=== PATIENT | female | born 1995 | race Caucasian/White ===

== ENCOUNTER 2019-08-10 04:35 | Emergency (ER) | payer OTHER, MEDICAID, SELFPAY ==
[2019-08-10 04:35] VITALS: BP 127/60; PULSE 103; RESP 18; TEMP 36.3; O2SAT 98
--- NOTE | 2019-08-10 05:08 | ED.GENADULT ---
HPI - General Adult General Chief complaint: Abdominal Pain Stated complaint: throwing up History of Present Illness HPI narrative: Mariposa presented To the emergency department with lower abdominal pain, diarrhea, nausea and vomiting. She 1st started to have lower abdominal pain approximately 7 hours ago. She went to the bathroom and had bloody diarrhea. She has had multiple episodes of bloody diarrhea since as well as countless episodes of nonbilious nonbloody vomiting. She also reports subjective fevers and chills as well as fatigue. Has significant tenesmus and is frequently having to go to the bathroom in the emergency department. No travel or sick contacts. No myalgias or heat/ cold intolerance. She also took a picture of bloody mucous and blood tinged diarrhea in the toilet bowel from yesterday. Related Data Allergies Allergy/AdvReac Type Severity Reaction Status Date / Time No Known Allergies Allergy Verified 03/18/19 11:46 Review of Systems Constitutional: Constitutional: Reports chills, Reports fatigue and Reports fever(s) Eyes: Eyes: Reports no additional eye complaints ENT: Reports system reviewed and no additional complaints, except as documented Cardiovascular: Cardiovascular: Reports no additional cardiovascular complaints Respiratory: Respiratory: Reports no additional respiratory complaints Gastrointestinal: Gastrointestinal: Reports as per HPI Genitourinary: Genitourinary: Reports no additional female genitourinary complaints Musculoskeletal: Musculoskeletal: Reports no additional musculoskeletal complaints Integumentary/Breasts: Skin/Breast: Reports system reviewed and no additional complaints, except as docu Neurologic: Reports system reviewed and no additional complaints, except as documented Psychiatric: Psychiatric: Reports no additional psychiatric complaints Endocrine: Endocrine: Reports no additional endocrine complaints Hematologic/Lymphatic: Hematologic/Lymphatic: Reports no additional hematologic/lymphatic complaints Allergic/Immunologic: Allergic/Immunologic: Reports no additional allergic/immunologic complaints FOR[facility]LY [facility] Social History Social History Smoking status: Former smoker Gender identity (if verbalized by the patient): Female Exam Const: General: no acute distress and alert Orientation/consciousness: patient oriented x3 Limitations: No altered mental status Other: Mild distress. Has to frequently go to the bathroom but is unsure if she has to urinate of deficate. HENMT: Other: normocephalic, atraumatic Eyes: Conjunctivae: conjunctivae normal Pupils: Equal, round and reactive pupils present Neck: Neck: normal visual inspection Resp: Effort & Inspection: normal respiratory effort Auscultation: clear to auscultation bilaterally and no wheezes Cardio: Rate: regular rate Rhythm: regular rhythm Heart sounds: no murmurs GI: GI Palp: Yes Soft to palpation Other: Bowel sounds present throughout, tender to palpation worse in the epigastric region and suprapubic region but was slightly tender throughout. N o guarding or rebound tenderness. Small external hemorrhoid. Negative psoas and obturator signs. : Other: No CVA tenderness, did have suprapubic tenderness Skin: Other: Warm and moist to the touch, no rashes. Neuro: General: patient oriented x3, moves all extremities and no focal motor deficits Extrem: General: normal to inspection Psych: Mental Status: mental status grossly normal Course Course Emergency Course: Mariposa was seen and evaluated. Ordered labs and stool studies as well as UA. Ordered 1L of NS, 4mg of zofran and 4 mg of morphine. Vital Signs Vital signs: Vital Signs Temperature 36.3 C L 08/10/19 04:35 Pulse Rate 103 H 08/10/19 04:35 Respiratory Rate 18 08/10/19 04:35 Blood Pressure 127/60 08/10/19 04:35 Pulse Oximetry 98 08/10/19 04:35 Temperature 36.3
[2019-08-10] MEDS: MORPHINE SULFATE 2 MG/ML INJ IV PUSH (05:15)
[2019-08-10] MEDS: ONDANSETRON INJ 4 MG/2 ML VIAL IV PUSH (05:20)
[2019-08-10] MEDS: SODIUM CHLORIDE 0.9% IV 1,000 ML 999 ML IV CONT (05:20)
[2019-08-10 05:24] LABS: Basophils Absolute Auto 0.01 K/mm3 (0.00-0.10); Basophils Percent Auto 0.1 % (0.0-1.0); Hematocrit 42.7 % (35.0-49.0); Hemoglobin 14.7 g/dL (12.0-15.0); Immature Granulocyte Absolute 0.03 K/mm3 (0.00-0.00); Immature Granulocyte Percent A 0.3 % (0.0-0.0); Lymphocytes Absolute Auto 0.63 K/mm3 (1.10-4.50); Lymphocytes Percent Auto 7.3 % (18.0-42.0); Mean Corpuscular HGB Conc 34.4 g/dL (32.0-36.0); Mean Corpuscular Hemoglobin 28.8 pg (27.0-31.0); Mean Corpuscular Volume 83.7 fL (78.0-102.0); Mean Platelet Volume 9.9 fl (9.2-11.8); Monocytes Absolute Auto 0.41 K/mm3 (0.10-0.90); Monocytes Percent Auto 4.8 % (2.0-11.0); Neutrophils Absolute Auto 7.5 K/mm3 (1.7-7.2); Neutrophils Percent Auto 87.5 % (50.0-70.0); Platelet Count Result 194 K/mm3 (150-420); White Blood Count 8.6 K/mm3 (4.8-10.8)
[2019-08-10 05:36] LABS: Add Urine Microscopic? YES; Appearance Urine Clear (Clear); Bilirubin Urine 1+ (Negative); Blood Urine 1+ (Negative); Color Urine Yellow (Yellow); Glucose Urine UA Negative (Negative); Ketones Urine Negative (Negative); Leukocyte Esterase Ur Trace (Negative); Nitrate Urine Negative (Negative); Protein Urine Negative (Negative); Specific Grav Ur 1.025 (1.010-1.020)
[2019-08-10 05:40] LABS: Pregnancy On Board Control Positive; Specific Gravity Ur 1.025 (1.010-1.035); Urine Pregnancy Test Negative
[2019-08-10 05:40] LABS: Alanine Aminotransferase 15 U/L (14-59); Alkaline Phosphatase 67 U/L (46-116); Anion Gap 14.7 mmol/L (7-16); Aspartate Amino Transferase 13 U/L (15-37); Bilirubin,Total 0.5 mg/dL (0.00-1.00); Blood Urea Nitrogen 13 mg/dL (7-18); Calcium 9.1 mg/dL (8.5-10.1); Carbon Dioxide 24 mmol/L (21-32); Chloride 106 mmol/L (98-108); Estimated CRCL calculation 99 ml/min; Estimated Glomerular Filt Rate > 60; Glucose 129 mg/dL (70-99); Lipase 48 U/L (73-393); Osmolality Calculated 294 mOsm/kg (285-295); Potassium 3.7 mmol/L (3.5-5.1); Sodium 141 mmol/L (136-145); Total Protein 7.2 g/dL (6.4-8.2)
[2019-08-10 05:44] LABS: Lactic Acid 1.6 mmol/L (0.4-2.0)
[2019-08-10 05:46] LABS: RBC Urine 0-2 /hpf (0-2)
[2019-08-10 05:47] LABS: Bacteria Urine 3+ /hpf; Squamous Epithelial Cell Urine Few /hpf (Few)
[2019-08-10 05:48] LABS: Influenza Control Valid (Valid)
== END 2019-08-10 06:03 | disposition home or self-care (01) ==
PROVIDERS: Emergency Provider Family Medicine
DX: K52.9 Noninfective gastroenteritis and colitis, unspecified (principal)
CPT/HCPCS: 36415; 80053; 81001; 81025; 83605; 83690; 85025; 87804; 96361; 96374; 96375; 99283; 99284; J2270; J2405; J7030

== ENCOUNTER 2019-08-10 10:26 | Outpatient (CLI) | payer OTHER, MEDICAID, SELFPAY | END 2019-08-10 10:27 | disposition home or self-care (01) | PROVIDERS: Visit Provider Family Medicine | DX: K52.9 Noninfective gastroenteritis and colitis, unspecified (principal); Z53.9 Procedure and treatment not carried out, unspecified reason | CPT/HCPCS: 99199 ==

== ENCOUNTER → 2021-06-03 15:57 | Outpatient (CLI) | payer OTHER, MEDICAID, SELFPAY ==
--- NOTE | ~2021-06-03 | XR_ITS ---
EXAMINATION: XR chest 2V DATE: 06/03/2021 16:25 INDICATION: Dyspnea, unspecified. TECHNIQUE: Frontal and lateral views of the chest were obtained. COMPARISON: Chest single view 10/08/2018 FINDINGS: The chest demonstrates clear lungs without pneumonia, pleural effusion, or pneumothorax. Th e heart size is normal. IMPRESSION: 1. No acute cardiopulmonary disease. Reviewed, dictated and finalized at location [employer]
== END ==
PROVIDERS: PCP Nurse Practitioner Family; Referring Provider Nurse Practitioner Family; Visit Provider Nurse Practitioner Family
DX: R06.00 Dyspnea, unspecified (principal)
CPT/HCPCS: 71046

== ENCOUNTER 2022-04-25 08:19 | Emergency (ER) | payer OTHER, MEDICAID, SELFPAY ==
[2022-04-25 08:29] VITALS: BP 115/61; PULSE 107; RESP 18; TEMP 37.1; O2SAT 100
--- NOTE | 2022-04-25 08:47 | ED.GENADULT ---
HPI - General Adult General Chief complaint: Upper Respiratory Infection Stated complaint: cold flu Source: patient Mode of arrival: ambulatory Limitations: no limitations History of Present Illness HPI narrative: Patient presents for evaluation of sore throat since yesterday. She has associated fevers and chills. She states that she, her boyfriend, and son had flu two weeks ago. She had a follow-up appointment with her primary provider 2 days ago was doing well at that time. She states her posterior pharynx is erythematous in appearance. She took 400 mg of ibuprofen this morning. She had some nausea which she attributes to the severity of her pain. She denies any vomiting, diarrhea, cough, shortness of breath. No additional complaints or concerns. Related Data Allergies Allergy/AdvReac Type Severity Reaction Status Date / Time No Known Allergies Allergy Verified 04/25/22 08:31 Review of Systems Review of Systems: CONSTITUTIONAL: Reports fever and chills. EYES: Denies visual changes, redness, or discharge. ENT: Reports sore throat. Denies rhinorrhea, congestion, or otalgia. CARDIOVASCULAR: Denies chest pain, palpitations, or edema. RESPIRATORY: Denies cough or dyspnea. GASTROINTESTINAL: Denies abdominal pain, nausea, vomiting, or diarrhea. GENITOURINARY: Denies dysuria or hematuria. SKIN: Denies rash or itching. MUSCULOSKELETAL: Denies back pain, joint pain, or myalgia. NEUROLOGIC: Denies headache, numbness, dizziness, or weakness. PSYCHIATRIC: Denies anxiety or depression. PMFSH Past Medical History Medical History No pertinent past medical history Surgical History Surgical History No pertinent past surgical history Family History Family History (Updated 04/25/22 @ 08:52 by MARGIE Smith, ) Mother Family history non-contributory Social History Social History Smoking status: Former smoker Gender identity (if verbalized by the patient): Female Exam Narrative: GENERAL: Well-appearing, well-nourished, and in no acute distress. HEAD: Normocephalic, atraumatic. EYES: PERRLA and EOMI. ENT: Nares clear, no rhinorrhea or epistaxis. Mucous membranes moist. Bilateral tonsillar enlargement and erythema without exudate. Uvula is midline. Bilateral TMs pearly qureshi nonbulging NECK: Supple. No adenopathy or masses. No carotid bruits or JVD CHEST: Clear to auscultation. No respiratory distress. No wheezes rales or rhonchi HEART: Regular rate and rhythm. No murmur heard. Normal peripheral pulses. ABDOMEN: Soft, nontender, nondistended, normal active bowel sounds. EXTREMITIES: Normal range of motion. No edema. SKIN: Warm, dry, no rash. NEURO: No focal deficits. Alert and oriented x3. PSYCH: Normal mood and affect. Course Course Emergency Course: This is a 26-year-old female who presented for evaluation of sore throat, fever and chills. Unfortunately we do not have rapid strep tests available. Will send throat culture. Start amoxicillin. Increase hydration. Okay to increase ibuprofen to 800mg po TID with food. Follow up with primary. Go to the ER for difficulty breathing or swelling. Patient in agreement with plan of care. Level of Care: Express Care Visit Vital Signs Vital signs: Vital Signs Temperature 37.1 C 04/25/22 08:29 Pulse Rate 107 H 04/25/22 08:29 Respiratory Rate 18 04/25/22 08:29 Blood Pressure 115/61 04/25/22 08:29 Pulse Oximetry 100 04/25/22 08:29 Oxygen Delivery Room Air 04/25/22 08:29 Temperature 37.1 C 04/25/22 08:29 Pulse Rate 107 H 04/25/22 08:29 Respiratory Rate 18 04/25/22 08:29 Blood Pressure 115/61 04/25/22 08:29 Pulse Oximetry 100 04/25/22 08:29 Oxygen Delivery Room Air 04/25/22 08:29 Medical Decision Making Vital Signs Vital Signs:
== END 2022-04-25 08:55 | disposition home or self-care (01) ==
PROVIDERS: Emergency Provider Nurse Practitioner; PCP Nurse Practitioner Family
DX: J02.9 Acute pharyngitis, unspecified (principal); Z87.891 Personal history of nicotine dependence
CPT/HCPCS: 87081; 87147; 99213; G0463

== ENCOUNTER 2022-07-05 10:27 | Emergency (ER) | payer OTHER, MEDICAID, SELFPAY ==
[2022-07-05 10:54] VITALS: BP 114/73; PULSE 86; RESP 14; TEMP 36.9; O2SAT 100
--- NOTE | 2022-07-05 11:32 | ED.EAR ---
HPI - Ear Problem General Chief complaint: Ear Stated complaint: rt ear throbbing,cough,runny nose Source: patient Mode of arrival: ambulatory Limitations: no limitations History of Present Illness HPI Narrative: Patient presents for evaluation of right-sided ear pain. Symptom onset this morning upon waking today. She has some muffled hearing on the right side. No drainage or tinnitus. Over the last 5 days she has experienced sinus congestion and cough. No fever, chills, nausea, vomiting, diarrhea. She indicates her cough and sinus symptoms are improving. She does not smoke. No underlying medical problems. Related Data Allergies Allergy/AdvReac Type Severity Reaction Status Date / Time No Known Allergies Allergy Verified 07/05/22 11:00 Review of Systems Review of Systems: CONSTITUTIONAL: Denies fever, chills, or sweats. EYES: Denies visual changes, redness, or discharge. ENT: Reports right-sided otalgia and muffled hearing.. Denies denies rhinorrhea, congestion, sore throat, tinnitus. CARDIOVASCULAR: Denies chest pain, palpitations, or edema. RESPIRATORY: Denies cough or dyspnea. GASTROINTESTINAL: Denies abdominal pain, nausea, vomiting, or diarrhea. GENITOURINARY: Denies dysuria or hematuria. SKIN: Denies rash or itching. MUSCULOSKELETAL: Denies back pain, joint pain, or myalgia. NEUROLOGIC: Denies headache, numbness, dizziness, or weakness. PSYCHIATRIC: Denies anxiety or depression. PMFSH Past Medical History Medical History No pertinent past medical history Surgical History Surgical History No pertinent past surgical history Family History Family History Mother Family history non-contributory Social History Social History Smoking status: Former smoker Substance use: never Gender identity (if verbalized by the patient): Female Spiritual care concerns: No Exam Narrative: GENERAL: Well-appearing, well-nourished, and in no acute distress. HEAD: Normocephalic, atraumatic. EYES: PERRLA and EOMI. ENT: Nares clear, no rhinorrhea or epistaxis. Mucous membranes moist. Oropharynx without tonsillar hypertrophy exudate or other lesions. Right tympanic membrane erythema and bulging NECK: Supple. No adenopathy or masses. No carotid bruits or JVD CHEST: Clear to auscultation. No respiratory distress. No wheezes rales or rhonchi HEART: Regular rate and rhythm. No murmur heard. Normal peripheral pulses. ABDOMEN: Soft, nontender, nondistended, normal active bowel sounds. EXTREMITIES: Normal range of motion. No edema. SKIN: Warm, dry, no rash. NEURO: No focal deficits. Alert and oriented x3. PSYCH: Normal mood and affect. Course Course Emergency Course: This is a 27-year-old female who presented for evaluation of right-sided ear pain. She has evidence of otitis media on exam. Will treat with Augmentin. Increase hydration. [id number] agents for symptom management. Follow up with primary provider. Go to the ER for worsening symptoms. Patient in agreement with plan of care. Level of Care: Express Care Visit Vital Signs Vital signs: Vital Signs Temperature 36.9 C 07/05/22 10:54 Pulse Rate 86 07/05/22 10:54 Respiratory Rate 14 07/05/22 10:54 Blood Pressure 114/73 07/05/22 10:54 Pulse Oximetry 100 07/05/22 10:54 Oxygen Delivery Room Air 07/05/22 10:54 Temperature 36.9 C 07/05/22 10:54 Pulse Rate 86 07/05/22 10:54 Respiratory Rate 14 07/05/22 10:54 Blood Pressure 114/73 07/05/22 10:54 Pulse Oximetry 100 07/05/22 10:54 Oxygen Delivery Room Air 07/05/22 10:54 Medical Decision Making Vital Signs Vital Signs: Vital Signs Temperature 36.9 C 07/05/22 10:54 Pulse Rate 86 07/05/22 10:54 Respiratory Ra
== END 2022-07-05 11:34 | disposition home or self-care (01) ==
PROVIDERS: Emergency Provider Nurse Practitioner; PCP Nurse Practitioner Family
DX: H66.91 Otitis media, unspecified, right ear (principal); Z87.891 Personal history of nicotine dependence
CPT/HCPCS: 99213; G0463

== ENCOUNTER 2023-02-24 08:56 | Emergency (ER) | payer OTHER, MEDICAID, SELFPAY ==
[2023-02-24 09:05] VITALS: BP 146/78; PULSE 107; RESP 16; TEMP 36.7; O2SAT 99
--- NOTE | 2023-02-24 09:34 | ED.GENADULT ---
HPI - General Adult General Chief complaint: Upper Respiratory Infection Stated complaint: Sore Throat Source: patient, family and RN notes reviewed History of Present Illness HPI narrative: 27 yo F presents to urgent care with complaints of a sore throat x 2 days. Denies any known fevers, chest pain, SOB, N/V/D. Related Data Home Medications Medication Instructions Recorded Confirmed No Home Medications 02/24/23 02/24/23 Allergies Allergy/AdvReac Type Severity Reaction Status Date / Time No Known Allergies Allergy Verified 02/24/23 09:27 Review of Systems Review of Systems: CONSTITUTIONAL: Denies fever, chills, or sweats. EYES: Denies visual changes, redness, or discharge. ENT: Left ear pain and sore throat CARDIOVASCULAR: Denies chest pain, palpitations, or edema. RESPIRATORY: Denies cough or dyspnea. GASTROINTESTINAL: Denies abdominal pain, nausea, vomiting, or diarrhea. GENITOURINARY: Denies dysuria or hematuria. SKIN: Denies rash or itching. MUSCULOSKELETAL: Denies back pain, joint pain, or myalgia. NEUROLOGIC: Denies headache, numbness, or weakness. Pertinent positives per HPI. PMFSH Past Medical History Medical History No pertinent past medical history Surgical History Surgical History No pertinent past surgical history Family History Family History Mother Family history non-contributory Social History Social History Smoking status: Former smoker Substance use: never Gender identity (if verbalized by the patient): Female Spiritual care concerns: No Comments At the time of my signature, I reviewed and agree with the nursing past medical, surgical, social, and family history. There is no relevant family history pertinent to the patient complaint. Exam Narrative: GENERAL: This is a well-nourished, well-developed patient, in no apparent distress. HEAD: normocephalic, atraumatic. EYES: Sclera clear/white. Vision is grossly intact. EARS: External ears normal, auditory canals clear and without drainage, TMs normal without perforation. Hearing grossly intact. NOSE: External nose normal with no obvious nasal discharge, nares without redness, no rhinorrhea. THROAT: Mucous membranes moist, posterior pharynx clear. NECK: Neck supple, non-tender without lymphadenopathy, masses or thyromegaly. CARDIOVASCULAR: Regular rate and rhythm without murmurs, gallops, or rubs. RESPIRATORY: Clear to auscultation. Breath sounds equal bilaterally. No wheezes, rales, or rhonchi. GASTROINTESTINAL: Abdomen soft, non-tender, nondistended. Bowel sounds are active. No hepato-splenomegaly, or palpable masses. No guarding. SKIN: warm, intact with no suspicious lesions or rash, good texture and turgor. NEURO: awake, alert, and oriented to person, place and time. There were no obvious focal neurologic abnormalities. EXTREMITIES: No clubbing, cyanosis, or edema. No joint tenderness, effusion, or edema noted. BACK: Nontender without deformity or crepitus. No flank tenderness. Course Course Level of Care: Express Care Visit Vital Signs Vital signs: Vital Signs Temperature 98.1 F 02/24/23 09:05 Pulse Rate 107 H 02/24/23 09:05 Respiratory Rate 16 02/24/23 09:05 Blood Pressure 146/78 H 02/24/23 09:05 Pulse Oximetry 99 02/24/23 09:05 Oxygen Delivery Room Air 02/24/23 09:05 Temperature 98.1 F 02/24/23 09:05 Pulse Rate 107 H 02/24/23 09:05 Respiratory Rate 16 02/24/23 09:05 Blood Pressure 146/78 H 02/24/23 09:05 Pulse Oximetry 99 02/24/23 09:05 Oxygen Delivery Room Air 02/24/23 09:05 Reviewed Medical Decision Making MDM Narrative Medical decision making narrative: Rapid strep is negative in the office; however we will se
== END 2023-02-24 09:43 | disposition home or self-care (01) ==
PROVIDERS: Emergency Provider Nurse Practitioner Family; PCP Nurse Practitioner Family
DX: J02.9 Acute pharyngitis, unspecified (principal); Z87.891 Personal history of nicotine dependence
CPT/HCPCS: 87081; 87880; 99213; G0463

== ENCOUNTER 2023-02-28 10:11 | Emergency (ER) | payer OTHER, MEDICAID, SELFPAY ==
[2023-02-28 10:23] VITALS: BP 127/88; PULSE 103; RESP 16; TEMP 36.5; O2SAT 97
--- NOTE | 2023-02-28 11:19 | ED.URI ---
HPI - URI/Sore Throat General Chief Complaint: Upper Respiratory Infection Stated Complaint: cough/lower back pain Time Seen by Provider: 02/28/23 11:19 Source: patient, RN notes reviewed and old records reviewed Mode of arrival: ambulatory Limitations: no limitations History of Present Illness HPI Narrative: 27 year old female who presents to [facility] care with complaints of cough which is productive at this time which started on Wednesday. Patient was seen on Wednesday for sore throat which was negative. Patient reports that she does have some nasal drainage and her voice is hoarse today, pain in mid right back with her cough. Patient denies any fever has been taking DayQuil, Vitamin C and also Ibuprofen. MD elicited complaint: cough and sore throat Onset (ago): day(s) (5-6 days) Pain scale (0-10): 4 Able to tolerate fluids by mouth: Yes Exacerbating factors: other (cough increaes back discomfort) Treatments prior to arrival: ibuprofen and other (DayQuil) Related Data Allergies Allergy/AdvReac Type Severity Reaction Status Date / Time No Known Allergies Allergy Verified 02/24/23 09:27 Review of Systems Review of Systems: CONSTITUTIONAL: Denies malaise, chills, sweats, or fever. EYES: Denies visual changes, redness, or discharge. ENT: Reports rhinorrhea, congestion, sinus pain,no otalgia and sore throat. CARDIOVASCULAR: Denies chest pain, palpitations, or edema. RESPIRATORY: Reports cough.? Denies dyspnea.reports pain to mid back with cough GASTROINTESTINAL: Denies abdominal pain, nausea, vomiting, diarrhea SKIN: Denies rash or itching. MUSCULOSKELETAL: Denies myalgia. NEUROLOGIC: Denies headache. All systems reviewed & are unremarkable except as noted in HPI and below PMFSH Past Medical History Medical History No pertinent past medical history Surgical History Surgical History No pertinent past surgical history Family History Family History Mother Family history non-contributory Social History Social History Smoking status: Former smoker Substance use: never Gender identity (if verbalized by the patient): Female Spiritual care concerns: No Comments At time of signature, agree with nursing past medical, surgical, social and family history. There is no relevant family history pertinent to the presenting complaint Exam Narrative: GENERAL: Well-appearing, well-nourished, and in no acute distress. HEAD: Normocephalic EYES: PERRLA, conjunctivae clear ENT: Nares clear, turbinates edematous and erythematous, clear discharge. Mucous membranes moist. TM pearly qureshi with dull light reflex bilaterally; no tragal tenderness. Oropharynx erythematous without lesions. Tonsils not enlarged and without exudate, no drooling, hoarseness, no trismus, uvula midline.post nasal drainage NECK: Supple. No lymphadenopathy CHEST: Clear to auscultation, breath sounds equal. No wheezing, rhonchi, rales, or stridor. No respiratory distress, speaks in full sentences.productive cough, SAO2 97% on room air, pain to mid back with cough HEART: Regular rate and rhythm. No murmur heard. SKIN: Warm, dry, no rash. NEURO: Alert and oriented x3. PSYCH: Normal mood and affect Course Course Emergency Course: Patient is aware of diagnosis, understands and agrees to treatment plan.? Anticipatory guidance given.? Patient agrees to follow-up as directed and is aware of reasons to seek care at the emergency department. Portions of this record may have been created with voice recognition software Level of Care: Express Care Visit Vital Signs Vital signs: Vital Signs Temperature 36.5 C 02/28/23 10:23 Pulse Rate 103 H 02/28/23 10:23 Respiratory Rate 16 02/28/23 10:23 Blood Pres
== END 2023-02-28 11:43 | disposition home or self-care (01) ==
PROVIDERS: Emergency Provider Registered Nurse; PCP Nurse Practitioner Family
DX: J06.9 Acute upper respiratory infection, unspecified (principal); Z87.891 Personal history of nicotine dependence
CPT/HCPCS: 99213; G0463

== ENCOUNTER 2023-10-27 15:20 | Emergency (ER) | payer OTHER, SELFPAY ==
[2023-10-27 15:32] VITALS: BP 119/76; PULSE 81; RESP 16; TEMP 36.6; O2SAT 100
--- NOTE | 2023-10-27 15:34 | ED.EAR ---
HPI - Ear Problem General Chief complaint: Ear Stated complaint: Sore Throat/Right Ear Pain Time Seen by Provider: 10/27/23 15:40 Source: patient and RN notes reviewed Mode of arrival: ambulatory Limitations: no limitations History of Present Illness HPI Narrative: 28-year-old female presents concern for right ear pain for 2-3 days. Reports she has mild right sore throat, ear hurts when she swallows. She reports she has had recent cold symptoms no doctor was treating her for a sinus infection. She reports she also was recently treated for pinkeye successfully. MD Complaint: ear pain Related Data Allergies Allergy/AdvReac Type Severity Reaction Status Date / Time No Known Allergies Allergy Verified 02/24/23 09:27 Review of Systems Review of Systems: CONSTITUTIONAL: Denies malaise, chills, sweats, or fever. EYES: Denies visual changes, redness, or discharge. ENT: Denies rhinorrhea, congestion, sinus pain, and sore throat. Reports right ear pain CARDIOVASCULAR: Denies chest pain, palpitations, or edema. RESPIRATORY: Denies cough. Denies dyspnea. GASTROINTESTINAL: Denies abdominal pain, nausea, vomiting, diarrhea SKIN: Denies rash or itching. MUSCULOSKELETAL: Denies myalgia. NEUROLOGIC: Denies headache. All systems reviewed & are unremarkable except as noted in HPI and below PMFSH Past Medical History Medical History No pertinent past medical history Surgical History Surgical History No pertinent past surgical history Family History Family History Mother Family history non-contributory Social History Social History Smoking status: Former smoker Substance use: never Gender identity (if verbalized by the patient): Female Spiritual care concerns: No Comments At time of signature, agree with nursing past medical, surgical, social and family history. There is no relevant family history pertinent to the presenting complaint Exam Narrative: GENERAL: Well-appearing, well-nourished, and in no acute distress. HEAD: Normocephalic EYES: PERRLA, conjunctivae clear ENT: Nares clear. Mucous membranes moist. TM pearly qureshi with sharp light reflex bilaterally; no tragal tenderness. Oropharynx not erythematous without lesions. Tonsils not enlarged and without exudate, no drooling, no hoarseness, no trismus, uvula midline. NECK: Supple. No lymphadenopathy CHEST: Clear to auscultation, breath sounds equal. No wheezing, rhonchi, rales, or stridor. No respiratory distress, speaks in full sentences. HEART: Regular rate and rhythm. No murmur heard. SKIN: Warm, dry, no rash. NEURO: Alert and oriented x3. PSYCH: Normal mood and affect Course Course Emergency Course: Patient is aware of diagnosis, understands and agrees to treatment plan. Anticipatory guidance given. Patient agrees to follow-up as directed and is aware of reasons to seek care at the emergency department. Portions of this record may have been created with voice recognition software Level of Care: [facility] Visit Vital Signs Vital signs: Vital Signs Temperature 98 F 10/27/23 15:32 Pulse Rate 81 10/27/23 15:32 Respiratory Rate 16 10/27/23 15:32 Blood Pressure 119/76 10/27/23 15:32 Pulse Oximetry 100 10/27/23 15:32 Oxygen Delivery Room Air 10/27/23 15:32 Temperature 98 F 10/27/23 15:32 Pulse Rate 81 10/27/23 15:32 Respiratory Rate 16 10/27/23 15:32 Blood Pressure 119/76 10/27/23 15:32 Pulse Oximetry 100 10/27/23 15:32 Oxygen Delivery Room Air 10/27/23 15:32 Reviewed. Medical Decision Making MDM Narrative Medical decision making narrative: I evaluated this in the [facility]. History is obtained from patient who is an independent historian and physical exam was performed.
== END 2023-10-27 15:51 | disposition home or self-care (01) ==
PROVIDERS: Emergency Provider Nurse Practitioner; PCP Nurse Practitioner Family
DX: H92.01 Otalgia, right ear (principal); Z87.891 Personal history of nicotine dependence
CPT/HCPCS: 99211; G0463

== ENCOUNTER 2024-01-23 11:20 | Emergency (ER) | payer OTHER, SELFPAY ==
[2024-01-23 11:31] VITALS: BP 120/71; PULSE 84; RESP 16; TEMP 36.8; O2SAT 99
[2024-01-23 11:47] VITALS: BP 120/71; PULSE 84; RESP 16; TEMP 36.8; O2SAT 99
--- NOTE | 2024-01-23 11:58 | ED.URI ---
HPI - URI/Sore Throat General Chief Complaint: Upper Respiratory Infection Stated Complaint: sinus ruth,rt ear clogged,migraine History of Present Illness HPI Narrative: Patient presents with nasal drainage cough congestion body aches and fevers for the last 3 days. No shortness of breath no chest pain. Patient is not taking [id number] for her symptoms. Related Data Allergies Allergy/AdvReac Type Severity Reaction Status Date / Time No Known Allergies Allergy Verified 01/23/24 11:29 Review of Systems Review of Systems: CONSTITUTIONAL: Denies chills, or sweats. Reports fever and generalized body aches EYES: Denies visual changes, redness, or discharge. ENT: Denies otalgia. Reports nasal congestion runny nose and sore throat CARDIOVASCULAR: Denies chest pain, palpitations, or edema. RESPIRATORY: Denies dyspnea. Reports occasional cough GASTROINTESTINAL: Denies abdominal pain, nausea, vomiting, or diarrhea. GENITOURINARY: Denies dysuria or hematuria. SKIN: Denies rash or itching. MUSCULOSKELETAL: Denies back pain, joint pain, or myalgia. Reports generalized body aches NEUROLOGIC: Denies headache, numbness, or weakness. PSYCHIATRIC: Denies anxiety or depression. [facility] Past Medical History Medical History No pertinent past medical history Surgical History Surgical History No pertinent past surgical history Family History Family History Mother Family history non-contributory Social History Social History Smoking status: Former smoker Substance use: never Gender identity (if verbalized by the patient): Female Spiritual care concerns: No Comments At time of signature, agree with nursing past medical, surgical, social and family history. There is no relevant family history pertinent to the presenting complaint Exam Narrative: The patient is a well-developed, well-nourished in no acute distress. SKIN: Skin is warm and dry without erythema, swelling or exudate. There is good turgor. No tenting. HEAD: Atraumatic. Normocephalic. No temporal or scalp tenderness. EYES: Moist and bright. Sclera and conjunctivae normal. No discharge. PERRLA. Extraocular motions intact. Gross visual acuity intact. EARS: Pinna is normal shape and contour. Clear external auditory canals. TM pearly layne with good cone of light, no erythema or suppuration. Bilateral cerumen noted no gross hearing deficit. NOSE: pink, moist mucosa with good air movement. Clear rhinorrhea without nasal flaring. Septum midline. Mouth: moist mucous membranes. THROAT; mild erythema noted to posterior oropharynx with moderate postnasal drainage. Without exudate or ulceration.. Uvula midline. Normal movement of soft palate. NECK: Supple and nontender with full range of motion without discomfort. No meningeal signs. LUNGS: Equal and bilateral breath sounds without wheezes, rales or rhonchi. CHEST: The chest wall is without retractions or use of accessory muscles. HEART: Has a regular rate and rhythm without murmur, gallops, click or rub. ABDOMEN: Soft, nontender with positive active bowel sounds. No rebound tenderness. EXTREMITIES: Without cyanosis, clubbing or edema. Equal 2+ distal pulses and 2 second capillary refill noted. NEUROLOGIC: alert, active, . The patient moves all extremities with normal muscle strength. Normal muscle tone is noted. Normal coordination is noted. NO focal neurological findings noted. Course Course Level of Care: Express Care Visit Vital Signs Vital signs: Vital Signs Temperature 36.8 C 01/23/24 11:31 Pulse Rate 84 01/23/24 11:31 Respiratory Rate 16 01/23/24 11:31 Blood Pressure 120/71 01/23/24 11:31 Pulse Oximetry 99 01/23/24 11:31 Oxygen Delivery Room Air 01/23/24 11:31
[2024-01-23 12:00] LABS: EDCOVIDSCREEN Negative (Negative); EDINFLUASCREEN Negative (Negative); EDINFLUBSCREEN Negative (Negative)
== END 2024-01-23 12:06 | disposition home or self-care (01) ==
PROVIDERS: Emergency Provider Nurse Practitioner Family; PCP Nurse Practitioner Family
DX: J06.9 Acute upper respiratory infection, unspecified (principal); Z20.822 Contact with and (suspected) exposure to COVID-19; Z87.891 Personal history of nicotine dependence
CPT/HCPCS: 87635; 87804; 99213; G0463

== ENCOUNTER 2024-07-28 11:14 | Emergency (ER) | payer SELFPAY ==
[2024-07-28 11:23] VITALS: BP 104/75; PULSE 99; RESP 16; TEMP 36.6; O2SAT 100
--- NOTE | 2024-07-28 11:28 | ED.URI ---
HPI - URI/Sore Throat General Chief Complaint: Nausea/Vomiting/Diarrhea Stated Complaint: flu symptoms Time Seen by Provider: 07/28/24 11:28 Source: patient Mode of arrival: ambulatory Limitations: no limitations History of Present Illness HPI Narrative: 29 yo F presents with c/o N/V, ABD cramping since yesterday evening. Afebrile. Family members have been sick with similar symptoms. Vomited once today. All systems reviewed and negative except as noted above. Related Data Allergies Allergy/AdvReac Type Severity Reaction Status Date / Time No Known Allergies Allergy Verified 01/23/24 11:29 Review of Systems Review of Systems: CONSTITUTIONAL: Denies fever, chills, or sweats. reports fatigue. EYES: Denies visual changes, redness, or discharge. ENT: Denies rhinorrhea, congestion, sore throat, or otalgia. CARDIOVASCULAR: Denies chest pain, palpitations, or edema. RESPIRATORY: Denies cough or dyspnea. GASTROINTESTINAL: Reports abdominal cramping, nausea, vomiting. Denies diarrhea. GENITOURINARY: Denies dysuria or hematuria. SKIN: Denies rash or itching. MUSCULOSKELETAL: Denies back pain, joint pain, or myalgia. NEUROLOGIC: Denies headache, numbness, or weakness. PSYCHIATRIC: Denies anxiety or depression. All other systems reviewed are negative, except as documented in HPI. PMFSH Past Medical History Medical History No pertinent past medical history Surgical History Surgical History No pertinent past surgical history Family History Family History Mother Family history non-contributory Social History Social History Smoking status: Former smoker Substance use: never Gender identity (if verbalized by the patient): Female Spiritual care concerns: No Comments At time of signature, agree with nursing past medical, surgical, social and family history. There is no relevant family history pertinent to the presenting complaint. Exam Narrative: GENERAL: This is a well-nourished, well-developed patient, in no apparent distress. HEAD: normocephalic, atraumatic. EYES: PERRL. Sclera clear/white. Vision is grossly intact. EARS: External ears normal NOSE: External nose normal NECK: Neck supple, non-tender without lymphadenopathy, masses or thyromegaly. CARDIOVASCULAR: Regular rate and rhythm without murmurs, gallops, or rubs. RESPIRATORY: Clear to auscultation. Breath sounds equal bilaterally. No wheezes, rales, or rhonchi. GASTROINTESTINAL: Abdomen soft, non-tender, nondistended. Bowel sounds are active. No hepato-splenomegaly, or palpable masses. No guarding. SKIN: warm, Dry, intact with no suspicious lesions or rash, good texture and turgor. NEURO: awake, alert, and oriented to person, place and time. There were no obvious focal neurologic abnormalities. EXTREMITIES: No joint tenderness, effusion, or edema noted. Course Course Level of Care: Express Care Visit Vital Signs Vital signs: Vital Signs Temperature 36.6 C 07/28/24 11:23 Pulse Rate 99 07/28/24 11:23 Respiratory Rate 16 07/28/24 11:23 Blood Pressure 104/75 07/28/24 11:23 Pulse Oximetry 100 07/28/24 11:23 Oxygen Delivery Room Air 07/28/24 11:23 Temperature 36.6 C 07/28/24 11:23 Pulse Rate 99 07/28/24 11:23 Respiratory Rate 16 07/28/24 11:23 Blood Pressure 104/75 07/28/24 11:23 Pulse Oximetry 100 07/28/24 11:23 Oxygen Delivery Room Air 07/28/24 11:23 Reviewed MDM - URI/Sore Throat MDM Narrative Medical decision making narrative: patient is well-appearing. No vomiting while at Express [facility]. Will discharge with dicyclomine and Zofran. No abdominal tenderness on exam. Patient is alert, nontoxic. Please be advised this is a medical document. It is intended for [id number] communication. It is written in medical language and may contain unfamiliar abbreviations or verbiage. Medical documents are intended to carry relevant information, facts as evident, and the clinical opinion of the practitioner at the time of the encounter. This report may have been done utilizing a voice recognition system. Attempts have been made to correct errors. However, there may be uncorrected grammatical, spelling, and recognition errors present. The file time of this note does not necessarily represent the time of service. Discharge Plan Discharge Clinical Impression: Viral gastroenteritis Patient Disposition: Home, Self-Care Condition: Stable Instructions: Gastroenteritis (ED) Additional Instructions: your symptoms are viral and may last 7-10 days. Take medications as prescribed. Take Tylenol or ibuprofen every 6-8 hours as needed for pain and fever. Drink plenty of water to prevent dehydration. See your primary care physician if symptoms are not improving. If you have severe abdominal pain go to the ER. Patient Language: Z[place]ian Prescriptions: New dicyclomine 20 mg tablet 20 mg PO Q6-8H PRN (Reason: abdominal cramping) Qty: 20 0RF ondansetron 4 mg tablet,disintegrating 4 mg PO Q8H PRN (Reason: nausea and vomiting) Qty: 12 0RF Follow-up/Referrals: Scott,Taty Perales APN [Primary Care Provider] - Stand Alone Forms: Work/School Release IP Time of Disposition: 11:34
--- OUTSIDE RECORDS SUMMARY | 2024-07-28 12:28 | XMS_ITS | Clinical Summary ---
Author Organization [facility] Address [address] [place] [address] Phone Care Team Providers Care Ironer Or Presser Name Role Phone Taty Scott APRN, CNP Primary Care Provider [phone] Taty Scott APRN, CNP Unavailable Allergies No known active allergies Medications albuterol 108 (90 Base) MCG/ACT Aerosol Solution take 2 Puffs by inhalation every 6 hours as needed for Cough. 6.7 g 2 Active albuterol 108 (90 Base) MCG/ACT Aerosol Solution take 2 Puffs by inhalation every 4 hours as needed. Active ondansetron (ZOFRAN) 4 MG Tablet Take 1 Tablet by mouth every 8 hours as needed for Nausea - 1st line. 10 Tablet 4 Active Social History Tobacco Use Types Packs/Day Years Used Date Smoking Tobacco: Former Smokeless Tobacco: Never Alcohol Use Standard Drinks/Week Comments Not Currently 0 (1 standard drink = 0.6 oz pur e alcohol) rare Comments No Sex and Gender Information Value Date Recorded Sex Assigned at Female 09/21/2023 10:15 AM CDT Legal Sex Female 7:52 PM CDT Gender Identity Female 09/21/2023 10:15 AM CDT Sexual Orientation Straight 09/21/2023 10 :15 AM CDT Last Filed Vital Signs Vital Sign Reading Time Taken Comments Blood Pressure 97/57 09/21/2023 2:15 PM CDT Pulse 100 09/21/2023 2:15 PM CDT Temperature 36.8 C (98.3 F) 09/21/2023 8:38 AM CDT Respiratory Rate 18 09/21/2023 2:15 PM CDT Oxygen Saturation 97% 09/21/2023 2:15 PM CDT Inhaled Oxygen Concentration - - Weight 77.1 kg (170 lb) 09/21/2023 8:38 AM CDT Height 170.2 cm (5' 7 ) 09/21/2023 8:38 AM CDT Body Mass Index 26.63 09/21/2023 8:38 AM CDT Plan of Treatment Health Maintenance Due Date Last Done Comments Hepatitis C Virus (HCV) Screening 1997 Hepatitis B Immunization (3 of 3 - 3-dose series) 01/02/1998 1997, 1997 Pap Smear 2018 Influenza Immunization (#1) 01/09/202403/10, 02/14/2013, 01/29/2012, Additional history exists SARS-COV-2 Immunization ( season) 2024 Respiratory Syncytial Virus (RSV) Immunization (Adult) (1 - 1-dose 75+ series) 2072 Human Papillomavirus (HPV) Immunization Discontinued 05/01/2008, 12/13/2007, 10/12/2007 Meningococcal Immunization (ACWY) Completed 09/11/2013 TdaP Immunization Completed 11/04/2017, 10/12/2007 Pneumococcal Immunization Combined Aged Out No longer eligible based on patient's age to complete this topic Rotavirus Immunization Aged Out No lo nger eligible based on patient's age to complete this topic Insurance MEDICAID [facility] MEDICAID [place] Care Teams Ironer Or Presser Relationship Specialty Start Date End Date Taty Scott APRN, [address] [place] [address] PCP - General Family Medicine 10/16/21 Taty Scott APRN, [address] [address] Family Medicine 10/16/21
--- OUTSIDE RECORDS SUMMARY | 2024-07-28 12:28 | XMS_ITS | Data Portability ---
Author Organization [facility] EULALIOKallie Address [address] [facility] [facility] [place] [address] Care Team Providers Care Clinical Interviewer Name Role Phone GARCIA, TATY Primary Care Provider Unavailabl e Assessment No assessment recorded. Plan of Treatment Reminders Order Date Submit Date Provider Last Modified By Organization Details Last Modified Time Details Appointments None recorded . Lab PPD (purifie d protein derivati ve), skin test 2023 024 REJI In-Office Order, Internal Use Only DO Not Attach Compendium DO Not Attach Compendium, Do Not Delete/merge, [id number] 16:27:27 TSH, ultra-se nsitive, serum 2023 024 REJI Labpritesh, [address], [place], [address], 4 08:24:31 CMP, serum or plasma 2023 024 REJI Diaz, 2022 [address], [address], [place], [address], 4 08:24:30 lipid panel, serum 2023 024 REJI Diaz, 2022 [address], [address], [place], [address], 4 08:24:29 CBC 2023 024 REJI Diaz, 2022 [address], [address], [place], [address], 4 08:24:32 Referral None recorded . Procedures None recorded . Surgeries None recorded . Imaging XR, lumbosac ral spine, 2 or 3 view 2023 [facility], [address], [place], [address], 4 18:42:09 Medication Orders Ventolin HFA 90 mcg/actu ation aerosol inhaler 2023 024 [id number], [address] [place], [address], 4 16:32:17 azithrom ycin 250 mg tablet 2023 [id number], [address] [place], [address], 4 16:31:15 benzonat ate 200 mg capsule 2023 024 [id number], [address] [place], [address], 4 16:31:14 Tubersol 5 tub. unit/0.1 mL intrader mal injectio n solution 2023 [email or web address] Not available 16:17:03 polymyxi n B sulfate 10,000 unit-tri methopri m 1 mg/mL eye drops 2023 024 [id number], [address] [place], [address], 4 15:54:59 amoxicil meño 500 mg capsule 2023 024 [id number], [address] [place], [address], 4 12:15:37 Patient TargetsNo targets recorded. Patient Instructions Encounter Date Encounter Id Patient Instructions Last Modified By Organization Details Last Modified Time 06/16/2023 [id number] A healthy lifestyle: care instructions essentia Not available 06/16/2023 15:47:33 - Avoid heavy lifting and over-exertion. - Avoid bed-rest do some gentle stretching and continue with normal activities. - Use ice to relieve pain, 15 minutes every 2 4 hours. - Use heat to relax muscles, 15 minutes every 2 4 hours. - Sleep on a firm surface and avoid lying on the sofa. Not available 06/16/2023 15:37:03 Plan pending imaging results. f/u as needed DWP barriers to care: none Not available 06/16/2023 15:37:04 08/03/2023 [id number] A healthy lifestyle: care instructions essentia Not available 08/03/2023 17:00:01 Take all antibiotics prescribed to you. If any fever or increase in pain, call/return to office. Not available 08/03/2023 16:59:25 follow up as needed Not available 08/03/2023 16:59:29 10/14/2023 [id number] Wash your hands often. Always wash them before and after you treat pinkeye or touch your eyes or face. Use moist cotton or a clean, wet cloth to remove crust. Put cold or warm wet cloths on your eye a few times a day if the eye hurts. Do not wear contact lenses or eye makeup until the pinkeye is gone. Throw away any eye makeup you were using when you got pinkeye. Clean your contacts and storage case. If you wear disposable contacts, use a new pair when your eye has cleared and it is safe to wear contacts again. Take all antibiotics prescribed to you. Keep the bottle tip clean, and do not let it touch the eye area. -To put in eyedrops or ointment: -Tilt your head back, and pull your lower eyelid down with one finger. -Drop or squirt the medicine inside the lower lid. -Close your eye for 30 to 60 seconds to let the drops or ointment move around. -Do not touch the ointment or dropper tip to your eyelashes or any other surface. -Do not share towels, pillows, or washcloths while you have pinkeye. Call your doctor now or seek immediate medical care if: -You have pain in your eye, not just irritation on the surface. -You have a change in vision or loss of vision. -You have an increase in discharge from the eye. -Your eye has not started to improve or begins to get worse within 48 hours after you start using antibiotics or if Pinkeye lasts longer than 7 days. essentia Not available 10/14/2023 12:36:34 Schedule a follow-up appointment if symptoms persist beyond a few days, worsen, or if there is a significant change in vision. Not available 10/14/2023 12:36:28 01/18/2024 [id number] A healthy lifestyle: care instructions essentia Not available 01/18/2024 16:29:07 Increase intake of fresh fruits, and vegetables. Avoid packaged foods and fast foods. Follow a low salt diet, drink at least 8-10 8oz glasses of water a day, exercise most days of the week. Take all medications as prescribed. Keep appointments with PCP and all specialists. Not available 01/18/2024 16:30:44 RTO for Tb test reading Not available 01/18/2024 16:30:55 04/05/2024 [id number] bronchitis: care instructions essentia Not available 04/05/2024 16:31:08 Take all antibiotics prescribed to you. If any fever or increase in pain, call/return to office. essentia Not available 04/05/2024 16:31:14 follow up as needed essentia Not available 04/05/2024 16:31:21 Reason for Referral None Reported. Results Created Date Observation Date Name Description Value Unit Range Abnormal Flag Note LastModifiedBy Organization Detail LastModifiedTime 01/18/2001/19/2024 LIPID PANEL cholesterol, total 128 mg/dL 100-19 9 Not Available [facility] ([facility] [place] [place] [facility] [address] [facility], [place], [address], 01/19/2024 08:24:29 01/18/20 24 01/19/2024 LIPID PANEL triglyceride s 56 mg/dL 0-149 Not Available [facility] [place] [place] [facility] [address] [facility] [place], [address], 01/19/2024 08:24:29 01/18/20 24 01/19/2024 LIPID PANEL HDL cholesterol 39 mg/dL >39 below low normal Not Available [facility] ([facility] [place] [place] [facility] [address] [facility] [place], [address], 01/19/2024 08:24:29 01/18/20 24 01/19/2024 LIPID PANEL VLDL cholesterol john 12 mg/dL 5-40 Not Available [facility] ([facility] [place] [place] [facility] [address] [place], [address], 01/19/2024 08:24:29 01/18/20 24 01/19/2024 LIPID PANEL LDL chol calc ([facility]) 77 mg/dL 0-99 Not Available [facility] ([facility] [place] [place] [facility] [address] [place], [address], 01/19/2024 08:24:29 01/18/20 24 01/19/2024 COMP. METAB OLIC PANEL (14) glucose 100 mg/dL 70-99 above high normal Not Available [facility] ([facility] [place] [place] [facility] [address] [place], [address], 01/19/2024 08:24:30 01/18/20 24 01/19/2024 COMP. METAB OLIC PANEL (14) BUN 8 mg/dL 6-20 Not Available [facility] ([facility] [place] [place] [facility] [address] [place], [address], 01/19/2024 08:24:30 01/18/20 24 01/19/2024 COMP. METAB OLIC PANEL (14) creatinine 0.66 mg/dL 0.57-1 .00 Not Available [facility] ([facility] [place] [place] [facility] [address] [place], [address], 01/19/2024 08:24:30 01/18/20 24 01/19/2024 COMP. METAB OLIC PANEL (14) eGFR 124 mL/mi n/1.7 3 >59 Not Available [facility] ([facility] [place] [place] [facility] [address] [facility], [place], [address], 01/19/2024 08:24:30 01/18/20 24 01/19/2024 COMP. METAB OLIC PANEL (14) BUN/creatini ne ratio 12 9-23 Not Available [facility] ([facility] [place] [place] [facility] [address] [facility], [place], [address], 01/19/2024 08:24:30 01/18/20 24 01/19/2024 COMP. METAB OLIC PANEL (14) sodium 138 mmol/ L 134-14 4 Not Available [facility] ([facility] [place] [place] [facility] [address] [facility], [place], [address], 01/19/2024 08:24:30 01/18/20 24 01/19/2024 COMP. METAB OLIC PANEL (14) potassium 3.7 mmol/ L 3.5-5. 2 Not Available [facility] ([facility] [place] [place] [facility] [address] [facility], [place], [address], 01/19/2024 08:24:30 01/18/20 24 01/19/2024 COMP. METAB OLIC PANEL (14) chloride 104 mmol/ L 96-106 Not Available [facility] ([facility] [place] [place] [facility] [address] [facility], [place], [address], 01/19/2024 08:24:30 01/18/20 24 01/19/2024 COMP. METAB OLIC PANEL (14) carbon dioxide, total 23 mmol/ L 20-29 Not Available [facility] ([facility] [place] [place] [facility] [address] [facility], [place], [address], 01/19/2024 08:24:30 01/18/20 24 01/19/2024 COMP. METAB OLIC PANEL (14) calcium 9.2 mg/dL 8.7-10 .2 Not Available [facility] ([facility] [place] [place] [facility] [address], [place], [address], 01/19/2024 08:24:30 01/18/20 24 01/19/2024 COMP. METAB OLIC PANEL (14) protein, total 6.6 g/dL 6.0-8. 5 Not Available [facility] ([facility] [place] [place] [facility] [address], [place], [address], 01/19/2024 08:24:30 01/18/20 24 01/19/2024 COMP. METAB OLIC PANEL (14) albumin 4.4 g/dL 4.0-5. 0 Not Available [facility] ([facility] [place] [place] [facility] [address] [place], [address], 01/19/2024 08:24:30 01/18/20 24 01/19/2024 COMP. METAB OLIC PANEL (14) globulin, total 2.2 g/dL 1.5-4. 5 Not Available [facility] ([facility] [place] [place] [facility] [address], [place], [address], 01/19/2024 08:24:30 01/18/20 24 01/19/2024 COMP. METAB OLIC PANEL (14) bilirubin, total 0.4 mg/dL 0.0-1. 2 Not Available [facility] ([facility] [place] [place] [facility] [address], [place], [address], 01/19/2024 08:24:30 01/18/20 24 01/19/2024 COMP. METAB OLIC PANEL (14) alkaline phosphatase 62 IU/L 44-121 Not Available [facility] ([facility] [place] [place] [facility] [address], [place], [address], 01/19/2024 08:24:30 01/18/20 24 01/19/2024 COMP. METAB OLIC PANEL (14) AST (SGOT) 14 IU/L 0-40 Not Available [facility] ([facility] [place] [place] [facility] [address], [place], [address], 01/19/2024 08:24:30 01/18/20 24 01/19/2024 COMP. METAB OLIC PANEL (14) ALT (SGPT) 10 IU/L 0-32 Not Available [facility] ([facility] [place] [place] [facility] [address] [facility], [place], [address], 01/19/2024 08:24:30 01/18/20 24 01/19/2024 TSH RFX ON ABNOR MAL TO FREE T4 TSH 0.707 uIU/m L 0.450- 4.500 Not Available [facility] ([facility] [place] [place] [facility] [address] [place], [address], 01/19/2024 08:24:31 01/18/20 24 01/19/2024 CBC, PLATE LET, NO DIFFE RENTI AL WBC 6.5 x10e3 /uL 3.4-10 .8 Not Available [facility] ([facility] [place] [place] [facility] [address] [place], [address], 01/19/2024 08:24:32 01/18/2001/19/2024 CBC, PLATE LET, NO DIFFE RENTI AL RBC 4.71 x10e6 /uL 3.77-5 .28 Not Available [facility] ([facility] [place] [place] [facility] [address] [place], [address], 01/19/2024 08:24:32 01/18/2001/19/2024 CBC, PLATE LET, NO DIFFE RENTI AL hemoglobin 14.0 g/dL 11.1-1 5.9 Not Available [facility] ([facility] [place] [place] [facility] [address] [place], [address], 01/19/2024 08:24:32 01/18/20 24 01/19/2024 CBC, PLATE LET, NO DIFFE RENTI AL hematocrit 43.2 % 34.0-4 6.6 Not Available [facility] ([facility] [place] [place] [facility] [address] [place], [address], 01/19/2024 08:24:32 01/18/20 24 01/19/2024 CBC, PLATE LET, NO DIFFE RENTI AL MCV 92 fL 79-97 Not Available [facility] ([facility] [place] [place] [facility] [address] [facility], [place], [address], 01/19/2024 08:24:32 01/18/20 24 01/19/2024 CBC, PLATE LET, NO DIFFE RENTI AL MCH 29.7 pg 26.6-3 3.0 Not Available [facility] ([facility] [place] [place] [facility] [address] [facility], [place], [address], 01/19/2024 08:24:32 01/18/20 24 01/19/2024 CBC, PLATE LET, NO DIFFE RENTI AL MCHC 32.4 g/dL 31.5-3 5.7 Not Available [facility] ([facility] [place] [place] [facility] [address] [facility], [place], [address], 01/19/2024 08:24:32 01/18/2001/19/2024 CBC, PLATE LET, NO DIFFE RENTI AL RDW 11.7 % 11.7-1 5.4 Not Available [facility] ([facility] [place] [place] [facility] [address] [facility], [place], [address], 01/19/2024 08:24:32 01/18/2001/19/2024 CBC, PLATE LET, NO DIFFE RENTI AL platelets 229 x10e3 /uL 150-45 0 Not Available [facility] ([facility] [place] [place] [facility] [address] [facility], [place], [address], 01/19/2024 08:24:32 01/20/2001/20/2024 PPD (kianna fied prote in deriv ative ), skin test Result Negati ve Not Available In-Office Order Internal Use Only DO Not Attach Compendium DO Not Attach Compendium, Do Not Delete/merge, [id number] 01/18/2024 16:23:31 06/17/19 24 06/17/2023 XR, lumbo sacra l spine , 2 or 3 view No observ ation record ed. [email or web address] [facility] [address], [place], [address], 06/23/2023 12:08:41 Result Notes None recorded. 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 Attn: Accountin g,[address] [facility], [place], [address], [facility] - [facility] 9 09:13:46 History of asthma 277119347 Active 2016 Taty Garcia APN [employer]PLICATION[employer] MANAGER[employer]C Attn: Enriquetain g,[address] [facility], [place], [address], [place] - [facility] 9 09:13:46 Mixed anxiety and depressive disorder 269921228 Active 2017 Taty Garcia APN [employer] MANAGER[employer] Attn: Accountin g,[address] [facility], [place], [address], [place] [facility] 9 09:13:46 Excessive cerumen in ear canal 420575335 Active 2017 Taty Garcia APN, [employer] Attn: Enriquetain g,[address] [facility], [place], [address], [place] [facility] 9 09:13:46 Family history of Cardiovascular disease 798909693 Active 2021 Taty Garcia [employer]IEUTENANT SHIFT SUPERVISOR, [employer]GER[employer] Attn: Enriquetajesus alberto wing,[address] [facility], [place], [address], [facility] - [facility] 2 17:37:37 Peripheral venous insufficiency 77079503 Active 2021 Taty Garcia [employer]IEUTENANT SHIFT SUPERVISOR, [employer]GER[employer] Attn: Enriquetajesus alberto wing,[address] [facility], [place], [address], [facility] 2 17:37:38 Overweight 205626083 Active 2021 Taty Garcia [employer]IE[employer]ENANT SHIFT SUPERVISOR, [employer]GER[employer] Attn: Enriquetajesus alberto wing,[address] [facility], [place], [address], [facility] 2 12:39:47 Cyst of scalp 153660850 Active 2021 Taty Garcia [employer]IEUTENANT SHIFT SUPERVISOR, [employer] MANAGER[employer] Attn: Bianca mecca,[address] [facility], [place], [address], [facility] 2 14:35:02 Chronic back pain 969151386 Active 2023 Taty Garcia [employer]IEUTENANT SHIFT SUPERVISOR, [employer] MANAGER[employer] Attn: Enriquetajesus alberto wing,[address] [facility], [place], [address], [facility] - [facility] 4 15:35:49 Problem Notes None recorded. Procedures Surgical History Date Name Laterality Status Provider Name and Address Organization Details Recorded Time 1 Cerumen Removal completed Taty Garcia [employer]ENA[employer] SHIFT SUPERVISOR, [employer]GER[employer] Attn: Accounting,[address] [facility], [place], [address], [facility] - [facility] 09/05/2020 11:08:24 0 Cerumen Removal completed Taty Garcia, [employer] SUPERVISOR, [employer]GER[employer] Attn: Accounting,[address] [facility], [place], [address], [facility] - [facility] 01/08/2020 16:09:56 8 Cerumen Removal completed Taty Garcia, [employer] SHIFT SUPERVISOR, [employer] MANAGER[employer]C Attn: Accounting,[address] [facility], [place], [address], [facility] - [facility] 02/15/2018 14:27:22 8 Cerumen Removal completed Taty Garcia, [employer]ENANT SHIFT SUPERVISOR, [employer] MANAGER[employer]C Attn: Accounting,[address] [facility], [place], [address], [facility] - [facility] 11/04/2017 15:55:13 7 Cerumen Removal completed Taty Garcia [employer]IEUTENANT SHIFT SUPERVISOR, [employer] MANAGER[employer] Attn: Accounting,[address] [facility], [place], [address], [facility] - [facility] 04/28/2017 18:07:42 6 Control Implant Removal completed Faith Duron [place] - [facility] 09/16/2015 10:39:55 Imaging Results Imaging Date Name Status LastModified by Organiz ation Details LastModified Time 06/17/2023 XR, lumbosacral spine, 2 or 3 view completed [email or web address] [facility] [address], [place], [address], 06/23/2023 12:08:41 Procedure Notes None recorded. Medical Equipment None Reported. Allergies No known drug allergies Medications Name Sig Start Date Stop Date Status Note LastModified by Organization Details LastModified Time amoxicilli n 500 mg caps 05/25 completed Not Available Not Available Not Available metronidaz ole vaginal 0.75 % gel 03/21 completed Not Available Not Available Not Available ondansetro n odt 4 mg tbdp 03/21 completed Not Available Not Available Not Available zolpidem tartrate 10 mg tabs 03/21 completed Not Available Not Available Not Available ranitidine hcl 150 mg tabs 11/04 completed Not Available Not Available Not Available tizanidine hydrochlor alina 4 mg tabs 08/13 completed Not Available Not Available Not Available naproxen 375 mg tabs 06/15 completed Not Available Not Available Not Available clindamyci n hcl 300 mg caps 03/21 completed Not Available Not Available Not Available cyclobenza jo-ann hcl 10 mg tabs 11/04 completed Not Available Not Available Not Available benzonatat e 100 mg caps 11/04 completed Not Available Not Available Not Available lidocaine viscous 2 % soln 05/25 completed Not Available Not Available Not Available nitrofuran toin monohydrat e/macrocry stals 100 mg caps 03/21 completed Not Available Not Available Not Available amoxicilli n/clavulan ate potassium 875-125 mg tabs 11/04 completed Not Available Not Available Not Available junel fe 05/29 1-20 mg-mcg tabs 01/07 completed Not Available Not Available Not Available nifedipine 20 mg caps 03/21 completed Not Available Not Available Not Available escitalopr am oxalate 10 mg tabs 03/21 completed Not Available Not Available Not Available cephalexin 500 mg caps 03/21 completed Not Available Not Available Not Available metronidaz ole 500 mg tabs 03/21 completed Not Available Not Available Not Available naproxen 500 mg tabs 08/13 completed Not Available Not Available Not Available prednisone 20 mg tabs 08/13 completed Not Available Not Available Not Available venlafaxin e hcl er 37.5 mg cp24 03/21 completed Not Available Not Available Not Available terconazol e 80 mg supp 03/21 completed Not Available Not Available Not Available buspirone hcl 15 mg tabs 03/21 completed 019-pt d/c 3 wks ago Not Available Not Available Not Available zolpidem tartrate 5 mg tabs 03/21 completed Not Available Not Available Not Available cyclobenza jo-ann 10 mg tablet TAKE 1 TABLET BY MOUTH AT BEDTIME NEEDED 06/16 completed Not Available Not Available Not Available amoxicilli n 500 mg capsule TAKE 1 CAPSULE BY MOUTH EVERY 8 HOURS FOR 10 DAYS 10/13 completed Not Available Not Available Not Available cetirizine 10 mg tablet Take 1 tablet every day by oral route. 03/21 completed Not Available Not Available Not Available azithromyc in 250 mg tablet TAKE 2 TABLETS (500 MG) BY ORAL ROUTE ONCE DAILY FOR 1 DAY THEN 1 TABLET (250 MG) BY ORAL ROUTE ONCE DAILY FOR 4 DAYS active Not Available Not Available No t Available tizanidine 4 mg tablet Take 1 tablet every 6 hours by oral route as needed. 08/13 completed Not Available Not Available Not Available benzonatat e 200 mg capsule Take 1 capsule 3 times a day by oral route as needed. active Not Available Not Available No t Available Effexor XR 37.5 mg capsule,ex tended release Take 1 capsule every day by oral route. 01/13 completed Not Available Not Available Not Available ondansetro n HCl 4 mg tablet TAKE 1 TABLET BY MOUTH EVERY 8 HOURS NEEDED FOR NAUSEA FIRST LINE active Not Available Not Available No t Available prednisone 20 mg tablet TAKE 2 TABLETS BY MOUTH EVERY DAY FOR 5 DAYS 06/16 completed Not Available Not Available Not Available Tubersol 5 tub. unit/0.1 mL intraderma l injection solution Administ er .1ml interder moose 04/05 completed Not Available Not Available Not Available dexamethas one 6 mg tablet TAKE 1 TABLET BY MOUTH EVERY DAY WITH BREAFAST 12/18 completed Not Available Not Available Not Available diphenoxyl ate-atropi ne 2.5 mg-0.025 mg tablet 01/07 completed Not Available Not Available Not Available acetaminop hen 500 mg tablet 05/12 completed Not Available Not Available Not Available famotidine 20 mg tablet Take 1 tablet twice a day by oral route. 07/16 completed Not Available Not Available Not Available cephalexin 500 mg capsule 01/07 completed Not Available Not Available Not Available ranitidine 150 mg tablet Take 1 tablet twice a day by oral route. 03/21 completed Not Available Not Available Not Available polymyxin B sulfate 10,000 unit-trime thoprim 1 mg/mL eye drops INSTILL 1 DROP INTO AFFECTED EYE(S) EVERY 6 HOURS FOR 7 DAYS 01/17 completed Not Available Not Available Not Available carbamide peroxide 6.5 % ear drops INSTILL 5 DROPS INTO AFFECTED EAR(S) BY OTIC ROUTE 2 TIMES PER DAY 11/04 completed Not Available Not Available Not Available lidocaine HCl 2 % mucosal solution TAKE 15 ML BY MOUTH EVERY 3 HOURS NEEDED 06/16 completed Not Available Not Available Not Available ergocalcif gerry (vitamin D2) 1,250 mcg (50,000 unit) capsule 09/05 completed Not Available Not Available Not Available methylpred nisolone 4 mg tablets in a dose pack TAKE 6 TABLETS ON DAY 1 DIRECTED ON PACKAGE AND DECREASE BY 1 TAB EACH DAY FOR A TOTAL OF 6 DAYS 07/16 completed Not Available Not Available Not Available albuterol sulfate HFA 90 mcg/actuat ion aerosol inhaler Inhale 2 puffs every 4 hours by inhalati on route as needed. active Not Available Not Available No t Available ketoconazo le 2 % topical cream APPLY TO THE AFFECTED AREA(S) BY TOPICAL ROUTE ONCE DAILY x 2 weeks 2024 active Not Available Not Available Not Avai lable ondansetro n 4 mg disintegra ting tablet 03/21 completed Not Available Not Available Not Available fluticason e propionate 50 mcg/actuat ion nasal spray,susp ension 2 SPRAY INTRANAS ALLY DAILY FOR 14 DAYS ADMINIST ER INTO EACH NOSTRIL active Not Available Not Available No t Available dicyclomin e 10 mg capsule TAKE 1 CAPSULE BY MOUTH THREE TIMES A DAY AFTER MEALS 06/16 completed not taking Not Available Not Available Not Available naproxen 500 mg tablet Take 1 tablet twice a day by oral route as needed. 08/13 completed Not Available Not Available Not Available amoxicilli n 875 mg-potassi um clavulanat e 125 mg tablet TAKE 1 TABLET BY MOUTH EVERY 12 HOURS FOR 7 DAYS 07/16 completed Not Available Not Available Not Available amoxicilli n-potassiu m clavulanat e 1,000 mg-62.5 mg tablet,ext .rel 12hr TAKE 1 TABLET BY MOUTH EVERY 12 HOURS FOR 7 DAYS 09/01 completed Not Available Not Available Not Available 05/29 (28) 1 mg-20 mcg (21)/75 mg (7) tablet 01/07 completed Not Available Not Available Not Available (28) 1.5 mg-30 mcg (21)/75 mg (7) tablet TAKE 1 TABLET BY MOUTH EVERY DAY 08/28 completed Not Available Not Available Not Available Benadryl 12/19 completed otc Not Available Not Available Not Available Altavera (28) 0.15 mg-0.03 mg tablet TAKE 1 TABLET BY MOUTH EVERY DAY 12/18 completed Not Available Not Available Not Available Vitals Date Recorded Body height Body mass index (BMI) Body weight Oxygen saturation Oxygen saturation in Arterial blood by Pulse oximetry Heart rate Respiratory rate Body temperature Systolic blood pressure Diastolic blood pressure Provider Name and Address Organization Details Last Updated DateTime 4 170.18 cm 26 kg/m2 58930.3 3 g 99 % 99 % 97 /min 16 /min 97.5 [degF] 116 mm[Hg] 64 mm[Hg] STEPHANIA Joyce [facility] 4 15:31:14 Date Recorded Body height Body mass index (BMI) Body weight Oxygen saturation Oxygen saturation in Arterial blood by Pulse oximetry Respiratory rate Heart rate Body temperature Systolic blood pressure Diastolic blood pressure Provider Name and Address Organization Details Last Updated DateTime 4 170.18 cm 26.8 kg/m2 62471.3 g 97 % 97 % 16 /min 97.5 /min 98.2 [degF] 122 mm[Hg] 76 mm[Hg] Kimmie Gallegos Benjamin [facility] 4 16:24:17 Date Recorded Body height Body mass index (BMI) Body weight Oxygen saturation Oxygen saturation in Arterial blood by Pulse oximetry Heart rate Respiratory rate Body temperature Systolic blood pressure Diastolic blood pressure Provider Name and Address Organization Details Last Updated DateTime 4 170.18 cm 26 kg/m2 26313.4 1 g 98 % 98 % 99 /min 16 /min 97.7 [degF] 110 mm[Hg] 71 mm[Hg] America Morales MA [facility] 4 12:18:04 Date Recorded Body height Body mass index (BMI) Body weight Oxygen saturation Oxygen saturation in Arterial blood by Pulse oximetry Respiratory rate Body temperature Heart rate Systolic blood pressure Diastolic blood pressure Provider Name and Address Organization Details Last Updated DateTime 4 170.18 cm 27.1 kg/m2 20573.4 8 g 99 % 99 % 16 /min 97.5 [degF] 83 /min 119 mm[Hg] 73 mm[Hg] Kimmie Gallegos Benjamin [facility] 4 15:56:40 Date Recorded Body height Body mass index (BMI) Body weight Oxygen saturation Oxygen saturation in Arterial blood by Pulse oximetry Respiratory rate Body temperature Heart rate Systolic blood pressure Diastolic blood pressure Provider Name and Address Organization Details Last Updated DateTime 4 170.18 cm 26.6 kg/m2 38783.7 g 99 % 99 % 16 /min 98 [degF] 86 /min 120 mm[Hg] 80 mm[Hg] Kimmie Gallegos [facility] 4 16:18:43 Social History Question Answer Notes LastModified by [employer] ion Details LastModified Time Tobacco Smoking Status Former Smoker Ivon Jennings MA [facility], [facility] 03/21/2019 12:08:32 Do You Have An Advance Directive? No Information not available 03/21/2019 What Is Your Level Of Alcohol Consumption? Occasional Information not available 12/19/2020 Are You Blind Or Do You Have Difficulty Seeing? No Glasses Information not available 12/30/2022 Is Blood Transfusion Acceptable In An Emergency? Yes Information not available 09/03/2015 What Is Your Level Of Caffeine Consumption? Moderate Information not available 03/31/2022 How Much Tobacco Do You Chew? None Information not available 09/03/2015 In The 14 Days Before Symptom Onset, Have You Had Close Contact With A Laboratory-confi rmed COVID-19 While That Case Was Ill? No Information not available 08/14/2019 In The 14 Days Before Symptom Onset, Have You Had Close Contact With A Person Who Is Under Investigation For COVID-19 While That Person Was Ill? No Information not available 08/14/2019 Have You Been To An Area Known To Be High Risk For COVID-19? No Information not available 08/14/2019 Are You Currently Employed? Yes Information not available 01/18/2024 Are You Deaf Or Do You Have Serious Difficulty Hearing? No Information not available 09/05/2020 What Type Of Diet Are You Following? REGULAR Information not available 09/03/2015 Which Illicit Or Recreational Drugs Have You Used? Declines Information not available 08/14/2019 Do You Or Have You Ever Used E-cigarettes Or Vape? 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 No Information not available 03/21/2019 Hard Of Hearing Or Deaf In One Or Both Ears? No Information not available 08/14/2019 Legally Blind In One Or Both Eyes? No Information not available 08/14/2019 Live Alone Or With Others? With Others Information not available 09/03/2015 What Was The Date Of Your Most Recent Tobacco Screening? 04/05/2024 Information not available 04/05/2024 How Many Children Do You Have? 1 Information not available 10/20/2021 Performs Monthly Self-breast Exam? No Information not available 09/03/2015 Do You Have Any Pets? Yes Information not available 03/31/2022 Do You Use Protection During Sex? Usually Information not available 10/20/2021 What Is Your Relationship Status? Single Fiancee Information not available 10/20/2021 Do You Use Your Seat Belt Or Car Seat Routinely? Yes Information not available 10/20/2021 Seat Belts Used Routinely Yes Information not available 09/03/2015 Are You Sexually Active? Yes Information not available 10/20/2021 Smoke Alarm In Home Yes Information not available 03/21/2019 Do You Have Smoke And Carbon Monoxide Detectors In Your Home? Yes Information not available 09/05/2020 At What Age Did You Start Smoking Tobacco? 18 Information not available 11/04/2017 Are You Passively Exposed To Smoke? No Information not available 09/05/2020 Do You Or Have You Ever Used Smokeless Tobacco? Never Used Smokeless Tobacco Information not available 03/21/2019 How Much Tobacco Do You Smoke? No Information not available 03/21/2019 General Stress Level High Information not available 09/03/2015 Do You Feel Stressed (tense, Restless, Nervous, Or Anxious, Or Unable To Sleep At Night)? EE75404-4 Information not available 01/18/2024 Do You Use Any Illicit Or Recreational Drugs? No Information not available 09/05/2020 Do You Use Sunscreen Routinely? No Information not available 09/03/2015 Has Tobacco Cessation Counseling Been Provided? No Information not available 12/30/2022 On What Date Was Tobacco Cessation Counseling Provided? 04/05/2024 Information not available 04/05/2024 How Many Years Have You Smoked Tobacco? 4 Information not available 11/04/2017 What Type Of Noise Exposure Are You Exposed To? Firearms Shooting Range Sometimes Information not available 03/31/2022 Do You Or Have You Ever Used Any Other Forms Of Tobacco Or Nicotine? No Information not available 09/05/2020 Sex: Female Functional Status Question Answer Note LastModified by Organization D etails LastModified Time Are you able to care for yourself? Yes Information n ot available 09/05/2020 What is your exercise level? None Information not available 09/03/2015 Mental Status None recorded. Family History Relationship Description Onset Age of this Age Resolved Age Notes LastModified by Organization Details LastModified Time Father Hypercholest erolemia cre[place]ford Not available 2015 09:34:12 Father Hypertensive disorder [email or web address] Not available 2015 09:34:12 Father Heart disease 26 [email or web address] Not available 2023 16:29:48 Maternal Grandmother Hypercholest erolemia [place] Not available 2015 09:34:12 Maternal Grandmother Malignant tumor of lung [email or web address] Not available 11/2023 15:28:15 Paternal Grandfather Heart disease cre[place]ford Not available 2015 09:34:12 Paternal Grandfather Hypercholest erolemia [place] Not available 2015 09:34:12 Paternal Grandfather Hypertensive disorder cre[place] Not available 2015 09:34:12 Mother Hypercholest erolemia [email or web address] Not available 2016 09:57:53 Brother Attention deficit hyperactivit y disorder [email or web address] Not available 04/28 09:58:10 Brother Depressive disorder [email or web address] Not available 2016 09:58:19 Maternal Uncle Malignant neoplasm of brain [email or web address] Not available 08/28 10:51:02 Maternal Uncle Malignant tumor of lung [email or web address] Not available 11/2023 15:28:15 Paternal Grandmother Malignant tumor of lung [email or web address] Not available 11/2023 15:28:15 Paternal Uncle Malignant tumor of lung jschulterma Not available 11/2023 15:28:15 Medical History Condition Response Coronary Artery Disease N Other N Atrial Fibrillation N High Blood Pressure N Breast Cancer N Lung Disease N Depression N COPD N Blood Clots N Breast Problem N Anesthesia Complications N Headaches/Migraines N Anxiety Disorder Y Muscle, Joint, or Bone Problems N Infertility N Polyps N Acid Reflux (GERD) N Cancer N Stroke N Endometriosis N High Cholesterol N Liver Disease N Headaches N Thyroid Problems N Kidney or Bladder Problems N GI Problems N Acne N Eating Disorder N Skin Problems N Anemia N Heart Attack (DE) N Diabetes N Ovarian Cancer N Blood Transfusions N Seizures/Epilepsy N Abuse/Domestic Violence N Asthma Y Allergies N Hepatitis N Heart Disease N Pre-Eclampsia N Heart Failure N Osteoporosis N Gynecological History Statement/Question Response Flow Moderate Date of LMP 04/03/2024 Sexually Active? N Menses Monthly Y HPV Vaccine Y Age at Menarche 16 Current Control Method None LMP Definite Desired Control Method None Obstetrics History GPAL:G 1 P 1 0 0 1 Type Value Full Term 1 Living 1 Total 1 Immunizations Vaccine Type Date Status Note Provider Brian rahman and Address Organization Details Recorded Time Rho(D)-IG 9 completed Taty Garcia APN, FNP-C Attn: [address] [place], [address], [facility] 08/03/2023 16:37:50 IPV 2 completed Taty Garcia APN, FNP-C Attn: [address] [place], [address], [facility] 08/03/2023 16:37:50 IPV 3 completed Taty Garcia, [employer]IEUTENANT SHIFT SUPERVISOR, [employer]ISE APPLICATIONS MANAGER-C Attn: [address] [facility], [place], [place], [address] [place] [address], [facility] 08/03/2023 16:37:50 MMR 2 completed Taty Garcia, [employer]IEUTENANT SHIFT SUPERVISOR, [employer]TER[employer]ISE APPLICATIONS MANAGER-C Attn: [address] [facility], [place], [address] [place] [address], [facility] 08/03/2023 16:37:50 influenza, unspecified formulation 9 completed Taty Garcia, [employer]IEUTENANT SHIFT SUPERVISOR, [employer]TER[employer]ISE APPLICATIONS MANAGER-C Attn: [address] [facility], [place], [address] [place] [address], [facility] 08/03/2023 16:37:50 influenza, unspecified formulation 4 completed Taty Garcia, LIEUTENANT SHIFT SUPERVISOR, ENTER[employer]ISE APPLICATIONS MANAGER-C Attn: [address] [facility], [place], [address] [place] [address], [facility] 08/03/2023 16:37:50 influenza, unspecified formulation 4 completed Taty Garcia, [employer]IEUTENANT SHIFT SUPERVISOR, ENTER[employer]ISE APPLICATIONS MANAGER-C Attn: [address] [facility], [place], [address] [place] [address], [facility] 08/03/2023 16:37:50 Influenza, split virus, trivalent, preservative 2 completed Taty Garcia, [employer]ENANT SHIFT SUPERVISOR, [employer]ISE APPLICATIONS MANAGER-C Attn: [address] [facility], [place], [address] [place] [address], [facility] 08/03/2023 16:37:50 Influenza, split virus, trivalent, PF 2 completed Taty Garcia, LIEUTENANT SHIFT SUPERVISOR, ENTER[employer]ISE APPLICATIONS MANAGER-C Attn: [address] [facility], [place], [address] [place] [address], [facility] 08/03/2023 16:37:50 influenza, split (incl. purified surface antigen) 1 completed Taty Garcia, [employer]UTENANT SHIFT SUPERVISOR, ENTER[employer]ISE APPLICATIONS MANAGER-C Attn: [address] [facility], [place], [address] [place] [address], [facility] 08/03/2023 16:37:50 influenza, split (incl. purified surface antigen) 8 completed Taty Garcia, LIEUTENANT SHIFT SUPERVISOR, ENTER[employer]ISE APPLICATIONS MANAGER-C Attn: [address] [facility], [place], [address] [place] [address], [facility] 08/03/2023 16:37:50 influenza, split (incl. purified surface antigen) 7 completed Taty Garcia, [employer]UTENANT SHIFT SUPERVISOR, ENTER[employer]ISE APPLICATIONS MANAGER-C Attn: [address] [facility], [place], [address] [place] [address], [facility] 08/03/2023 16:37:50 HPV, bivalent 8 completed Taty Garcia LIEUTENANT SHIFT SUPERVISOR, ENTERPRISE APPLICATIONS MANAGER-C Attn: [address] [facility], [place], [address] [place] [address], [facility] 08/03/2023 16:37:50 Td (adult), 2 Lf tetanus toxoid, preservative free, adsorbed 8 completed Taty Garcia [employer]IEUTENANT SHIFT SUPERVISOR, ENTER[employer]ISE APPLICATIONS MANAGER-C Attn: [address] [facility], [place], [address] [place] [address], [facility] 08/03/2023 16:37:50 meningococcal C conjugate 9 completed Taty Garcia, [employer]IE[employer]ENANT SHIFT SUPERVISOR, ENTER[employer]ISE APPLICATIONS MANAGER-C Attn: [address] [facility], [place], [address] [place] [address], [facility] 08/03/2023 16:37:50 meningococcal MCV4P 4 completed Taty Garcia, LIEUTENANT SHIFT SUPERVISOR, ENTERPRISE APPLICATIONS MANAGER-C Attn: [address] [facility], [place], [address] [place] [address], [facility] 08/03/2023 16:37:50 DTaP 2 completed Taty Garcia, LIEUTENANT SHIFT SUPERVISOR, ENTERPRISE APPLICATIONS MANAGER-C Attn: [address] [facility], [place], [address] [place] [address], [facility] 08/03/2023 16:37:50 DTaP 8 completed Taty Garcia, LIEUTENANT SHIFT SUPERVISOR, ENTERPRISE APPLICATIONS MANAGER-C Attn: [address] [facility], [place], [address], [facility] 08/03/2023 16:37:50 Influenza, live, quadrivalent, intranasal 3 completed Taty Garcia, LIEUTENANT SHIFT SUPERVISOR, ENTERPRISE APPLICATIONS MANAGER-C Attn: [address] [facility], [place], [address], [facility] 08/03/2023 16:37:50 Tdap 8 completed Not Available [facility] 05/27/2019 02:35:51 Influenza, split virus, quadrivalent, preservative 9 completed Not Available [facility] 05/27/2019 02:44:15 Tdap 8 completed Taty Garcia, [employer]ENANT SHIFT SUPERVISOR, ENTER[employer]ISE APPLICATIONS MANAGER-C Attn: [address] [facility], [place], [address], [facility] 06/21/2018 09:14:18 Hep B, unspecified formulation 8 completed Taty Gacria, [employer]ENA[employer] SHIFT SUPERVISOR, ENTERPRISE APPLICATIONS MANAGER-C Attn: [address] [facility], [place], [address], [facility] 06/21/2018 09:14:18 Hep B, unspecified formulation 8 completed Taty Tyler, [employer]ENA[employer] SHIFT SUPERVISOR, ENTER[employer]ISE APPLICATIONS MANAGER-C Attn: [address] [facility], [place], [address], [facility] 06/21/2018 09:14:17 Hep B, unspecified formulation 8 completed Taty Garcia, LIEUTENANT SHIFT SUPERVISOR, ENTERPRISE APPLICATIONS MANAGER-C Attn: [address] [facility], [place], [address], [facility] 06/21/2018 09:14:18 DTaP 8 completed Taty Garcia, LIEUTENANT SHIFT SUPERVISOR, ENTERPRISE APPLICATIONS MANAGER-C Attn: [address] [facility], [place], [address], [facility] 06/21/2018 09:14:17 DTaP 8 completed Taty Tyler, LIEUTENANT SHIFT SUPERVISOR, ENTERPRISE APPLICATIONS MANAGER-C Attn: [address] [facility], [place], [address], [facility] 06/21/2018 09:14:17 DTaP 8 completed Taty Garcia, LIEUTENANT SHIFT SUPERVISOR, ENTERPRISE APPLICATIONS MANAGER-C Attn: [address]ing,[address] [facility], [place], [address] [place] [address], [facility] 06/21/2018 09:14:18 DTaP 9 completed Taty Garcia, LIEUTENANT SHIFT SUPERVISOR, ENTERPRISE APPLICATIONS MANAGER-C Attn: [address] [facility], [place], [address] [place] [address], [facility] 08/03/2023 16:37:50 DTaP 3 completed Taty Garcia, LIEUTENANT SHIFT SUPERVISOR, ENTERPRISE APPLICATIONS MANAGER-C Attn: [address] [facility], [place], [address] [place] [address], [facility] 06/21/2018 09:14:18 Hib, unspecified formulation 8 completed Taty Garcia, LIEUTENANT SHIFT SUPERVISOR, ENTERPRISE APPLICATIONS MANAGER-C Attn: [address] [facility], [place], [address] [place] [address], [facility] 06/21/2018 09:14:17 Hib, unspecified formulation 8 completed Taty Garcia, LIEUTENANT SHIFT SUPERVISOR, ENTERPRISE APPLICATIONS MANAGER-C Attn: Accounting,[address] [facility], [place], [address] [place] [address], [facility] 06/21/2018 09:14:18 Hib, unspecified formulation 8 completed Taty Garcia, LIEUTENANT SHIFT SUPERVISOR, ENTERPRISE APPLICATIONS MANAGER-C Attn: Accounting,[address] [facility], [place], [address] [place] [address], [facility] 06/21/2018 09:14:17 Hib, unspecified formulation 9 completed Taty Garcia, LIEUTENANT SHIFT SUPERVISOR, ENTERPRISE APPLICATIONS MANAGER-C Attn: [address] [facility], [place], [address], [facility] 06/21/2018 09:14:17 meningococcal MCV4, unspecified formulation 4 completed Taty Garcia, LIEUTENANT SHIFT SUPERVISOR, ENTERPRISE APPLICATIONS MANAGER-C Attn: [address] [facility], [place], [address], [facility] 06/21/2018 09:14:18 Influenza, split virus, quadrivalent, preservative 3 completed Taty Garcia, LIEUTENANT SHIFT SUPERVISOR, ENTERPRISE APPLICATIONS MANAGER-C Attn: [address] [facility], [place], [address], [facility] 06/21/2018 09:14:18 polio, unspecified formulation 8 completed Taty Garcia, LIEUTENANT SHIFT SUPERVISOR, ENTERPRISE APPLICATIONS MANAGER-C Attn: [address] [facility], [place], [address], [facility] 06/21/2018 09:14:18 polio, unspecified formulation 8 completed Taty Garcia, LIEUTENANT SHIFT SUPERVISOR, ENTERPRISE APPLICATIONS MANAGER-C Attn: [address] [facility], [place], [address], [facility] 06/21/2018 09:14:17 polio, unspecified formulation 8 completed Taty Garcia, LIEUTENANT SHIFT SUPERVISOR, ENTERPRISE APPLICATIONS MANAGER-C Attn: [address] [facility], [place], [address], [facility] 06/21/2018 09:14:18 MMR 9 completed Taty Garcia, LIEUTENANT SHIFT SUPERVISOR, ENTERPRISE APPLICATIONS MANAGER-C Attn: [address] [facility], [place], [address], [facility] 06/21/2018 09:14:18 MMR 2 completed Taty Garcia, LIEUTENANT SHIFT SUPERVISOR, ENTERPRISE APPLICATIONS MANAGER-C Attn: [address] [facility], [place], [address], [facility] 08/03/2023 16:37:50 varicella 0 completed Taty Garcia, LIEUTENANT SHIFT SUPERVISOR, ENTERPRISE APPLICATIONS MANAGER-C Attn: [address] [facility], [place], [address], [facility] 06/21/2018 09:14:18 varicella 8 completed Taty Garcia, LIEUTENANT SHIFT SUPERVISOR, ENTERPRISE APPLICATIONS MANAGER-C Attn: [address]ing,[address], [place], [address], [facility] 08/03/2023 16:37:50 meningococcal ACWY, unspecified formulation 9 completed Taty Garcia APN, ENTERPRISE APPLICATIONS MANAGER-C Attn: [address] [facility], [place], [address] [place] [address], [facility] 06/21/2018 09:14:17 Hep A, unspecified formulation 5 completed Taty Garcia APN, ENTERPRISE APPLICATIONS MANAGER-C Attn: [address] [facility], [place], [address], [facility] 06/21/2018 09:14:18 Hep A, unspecified formulation 6 completed Taty Garcia APN, ENTERPRISE APPLICATIONS MANAGER-C Attn: [address] [facility], [place], [address] [place] [address], [facility] 06/21/2018 09:14:17 HPV, unspecified formulation 8 completed Taty Garcia APN, ENTERPRISE APPLICATIONS MANAGER-C Attn: [address] [facility], [place], [address], [facility] 06/21/2018 09:14:17 HPV, unspecified formulation 8 completed Taty Garcia APN, ENTERPRISE APPLICATIONS MANAGER-C Attn: [address] [place], [place], [address] [place] [address], [facility] 06/21/2018 09:14:17 Past Encounters Encounter ID Performer Location Encounter Start Date Encounter Closed Date Diagnosis/Indication Diagnosis SNOMED-CT Code Diagnosis ICD10 Code Diagnosis Note [id number] Faith Oliverio [facility] ([employer]) [address] [place] [address] 09/03/2015 13:21:59 09/03/2015 15:20:38 Contraception care management 139295136 Z30.9 control options discussed. Pt. declines all control at this time as she is not sexually active. Benefits, risks, and alternativ es to Nexplanon removal d/w pt. Pt. expressed understand ing. All pt. questions answered. RTO next available for Nexplanon removal. 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 Pt. expressed understand ing. All pt. questions answered. Consent signed and in chart. Nexplanon removed without difficulty . Please see procedure note for details. Pt. tolerated the procedure well. RTO PRN + initiation of sexual activity or age 23. [id number] Taty Garcia APN, ENTERPRISE APPLICATIONS MANAGER-C [facility] ([facility]) [address] [place] [address] 04/28/2017 09:40:10 04/29/2017 09:01:00 Adult health examination 111568448 Z00.00 labs today Palpitations 77463352 R0 0.2 hx of palpitatio ns, family hx of DE in 20's -father, will send for ekg and cardiology referral; plan pending ekg reading Gastroesop hageal reflux disease without esophagitis 974155280 K21.9 dwp using OTC antacid; Insomnia 732330704 G47.0 0 may take OTC benedryl if needing help going to sleep, can't shut off my brain ; has tried most OTC medication s History of asthma 166442 007 Z87.09 provided rescue inhaler, dwp if using more than 2x weekly for sob/wheezi ng to call office Generalize d anxiety disorder 87119056 F41.1 dwp palpitatio ns and r/o cardiac concerns before any medication s, decrease caffeine and nicotine use Excessive cerumen in ear canal 162881819 H61.23 flushed ears in office; moderate amount of wax removed. cont ear drops as directed. [id number] Hermila Gomez (Adult Med) [address] [place] [address] 05/26/2017 16:00:10 05/27/2017 12:03:51 Palpitations 85996615 R00.2 hx of palpitatio ns, family hx of DE in 20's -father, will send for ekg and cardiology referralek g shows abnormal Insomnia 112684375 G47.0 0 may take OTC benedryl if needing help going to sleep, can't shut off my brain ; has tried most OTC medication s; may refer to sleep study after eval from cardiology Gastroesop hageal reflux disease without esophagitis 911268137 K21.9 dwp using OTC antacid-no t helping, rx raniditine 150 mg bid [id number] Taty Garcia APN, FNP-C [facility] ([facility]ult [facility]) [address] [place] [address] 11/04/2017 15:10:52 11/05/2017 14:54:36 Administration of diphtheria, pertussis, and tetanus vaccine 545344040 Z23 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 cont ear drops as directed. [id number] Taty Garcia APN, FNP-C [facility] ([facility]) [address] [place] [address] 01/13/2018 16:07:21 01/17/2018 14:10:26 Seasonal allergic rhinitis 048357356 J30.2 dwp to start daily allergy medication such a zyrtec, also may use benedryl prn if symptoms severe Pain in lower limb 35007 006 M79.604 M79.605 pt c/o constant leg cramps with nighttime being worse, plan pending labs Allergic conjunctivitis 617344855 H10.13 will check for outdoor allergies, denies issues with any foods; plan pending results [id number] Taty Garcia APN, FNP-C [facility] ([facility]) [address] [place] [address] 01/24/2018 15:52:55 01/25/2018 11:15:59 Acute sinusitis [id number] J01.90 sinus pressure with purulent drainage, start amox 1 g TID x 7 days Splinter foreign body 42 0635607 T14.8XXA right thumb splinter- cleaned with rubbing alcohol, removed with tweezers, no bleeding or drainage, henna and bandaid applied Acute otitis media 11719 03 H65.03 bilateral TM's with erythema and purulent middle ear fluid, start amoxicilli n 500 mg capsule, take 2 three times a day for 7 days, may increase probiotics in between times. Try foods such as yogurt and naturally fermented veggies and drinks like kefir and kombucha. [id number] Taty Garcia APN, [facility] (Adult Med) [address] [place] [address] 02/15/2018 11:52:25 02/16/2018 11:04:57 Excessive cerumen in ear canal 808306353 H61.23 flushed ears in office; moderate amount of wax removed. cont ear drops as directed. History of asthma 739614 007 Z87.09 provided rescue inhaler, dwp if using more than 2x weekly for sob/wheezi ng to call office Mixed anxi ety and depressive disorder 661526492 F41.8 GM-21/21 PHQ9-26/27 pt wants to wean off effexor low dose XR 37.5 qd as she is trying to get and does not want to cont on med.DWP weaning down by taking half dose daily or one capsule every other day, call after 2 weeks to give update.dwp r/b/se including increased risk of suicide [id number] Taty Garcia APN, ZAIRA Gomez (Adult Med) [address] [place] [address] 03/21/2019 11:55:46 03/22/2019 10:36:16 History of asthma 748462071 Z87.09 provided rescue inhaler, dwp if using more than 2x weekly for sob/wheezi ng to call office Body mass index 25-29 - overweight 142918996 Z68.26 cont to work on weight loss, improving diet post Administra tion of influenza vaccine 38436098 Z23 cdc handout provided Abscess of oral tissue 08733352 K12.2 abcess on right upper cheek next to back molar; right submandibu lar tenderness and edema but no palpable nodes;will treat with amox and also provide viscous lidocaine for pain [id number] Taty Garcia APN, FNP-C [facility] (Adult Med) [address] [place] [address] 05/25/2019 15:38:11 06/02/2019 08:02:44 Pain of right shoulder joint [id number] 1376575 M25.511 dwp will try to MRI, cont muscle relaxer and nsaid prnpt planning to see ortho- will notify if needing anything else/refer [facility] [id number] Taty Garcia APN, FNP-C [facility] (Adult Med) [address] [place] [address] 06/15/2019 10:59:15 06/16/2019 07:54:28 Environmental allergy 008156618 T78.49XD unknown allergen, pt requests referral to substance abuse nurse Acute urticaria 97148617 9 L50.9 prednisone burst, dwp hx of asthma/ecz monika, call if changes or go to ER if anaphalaxi s [id number] Taty Garcia APN, FNP-C [facility] (Adult Med) [address] [place] [address] 08/14/2019 08:15:49 08/15/2019 08:46:52 Viral gastroenteritis 948516210 A08.4 dwp cont with prn nausea med, call if change in appetite or BM/vomitin g returns [id number] Taty Garcia APN, FNP-C [facility] (Adult Med) [address] [place] [address] 01/08/2020 08:15:57 01/09/2020 08:05:46 Excessive cerumen in ear canal 999525980 H61.23 flushed ears in office; moderate amount of wax removed. cont ear drops as directed. Chronic back pain 922946 002 G89.29 dwp will start with xrays, has been doing PT and not improving [id number] Taty Garcia APN, FNP-C [facility] (Adult Med) [address] [place] [address] 09/05/2020 10:22:22 09/06/2020 07:44:56 Excessive cerumen in ear canal 846722101 H61.23 flushed ears in office; moderate amount of wax removed. cont ear drops as directed. Insomnia 271452032 G47.0 0 may take OTC melatonin if needing help going to sleep, can't shut off my brain ; has tried most OTC medication s; will hold on rx since she has a toddler [id number] Taty Garcia APN, FNP-C [facility] (Adult Med) [address] [place] [address] 12/19/2020 14:44:38 12/25/2020 04:52:35 Easy bruising 313953603 R58 hx of bruising and not always sure where they are coming from, fam hx of clots, will get labs Low back pain 795904537 M54.5 tight since epidural when she had her son 2 years ago, dwp good stretching , will get imaging if persists [id number] Taty Garcia APN, FNP-C [facility] (Adult Med) [address] [place] [address] 05/12/2021 15:40:41 05/13/2021 08:56:45 Family history of Cardiovascular disease 478313239 Z82.49 advised pt to follow up with cardiology , will send new referral Peripheral venous insufficiency 67097542 I87.2 BLE mottled-pu rplish below kneeswill send for duplex US [id number] Taty Garcia APN, FNP-C [facility] (Adult Med) [address] [place] [address] 08/28/2021 10:45:19 09/05/2021 10:51:28 Family history of Cardiovascular disease 071657143 Z82.49 advised pt to follow up with cardiology , will send labs, Gastroesop hageal reflux disease without esophagitis 707493658 K21.9 dwp using OTC antaciddie t advised Adult heal th examination 608589687 Z00.01 labs today will cc to cardio Overweight 415513576 E66 .3 advised low fat, low cholestero l diet, regular exercise and weight reduction. Pain in bi lateral legs 0368167114 4960021 M79.604 M79.605 work up advised by cardio, will order labs here [id number] Taty Garcia APN, FNP-C [facility] (Adult Med) [address] [place] [address] 10/20/2021 12:01:54 10/21/2021 11:33:54 Exacerbation of intermittent asthma 507619187 J45.21 wheezing with expiration will start steroid burst and zpack Overweight 201306815 E66 .3 advised low fat, low cholestero l diet, regular exercise and weight reduction. [id number] Taty Garcia APN, FNP-C [facility] (Adult Med) [address] [place] [address] 12/18/2021 15:29:36 12/19/2021 08:51:40 History and physical examination, pre-employment 815098933 Z02.1 work form provided Overweight 971803417 E66 .3 advised low fat, low cholestero l diet, regular exercise and weight reduction. [id number] MD Patricia Sesay (Adult Med) [address] [place] [address] 03/31/2022 14:16:37 04/06/2022 09:41:44 Impacted cerumen of bilateral ears 5359629496 391959 H61.23 ears cleared canal normal no therapy return PRN [id number] Taty Garcia APN, FNP-C [facility] (Adult Med) [address] [place] [address] 04/22/2022 13:35:53 04/24/2022 16:18:23 Postviral cough 247715958 R05.3 pos for flu a two weeks ago, still has cough, will cover for bacterial infection as well Overweight 779006479 E66 .3 advised low fat, low cholestero l diet, regular exercise and weight reduction. Gastroesop hageal reflux disease without esophagitis 024668193 K21.9 dwp using OTC antaciddie t advised Cyst of scalp 776805565 L72.9 1.5 months, pea sized, not painful, will refer to have removed [id number] Taty Garcia APN, FNP-C [facility] (Adult Med) [address] [place] [address] 05/22/2022 09:47:43 05/26/2022 16:21:16 Cough 95072904 R05.9 started 5 days ago, may be viral or asthma flare up, neg flu and covid Overweight 094658913 E66 .3 advised low fat, low cholestero l diet, regular exercise and weight reduction. Acute laryngitis 4663429 J04.0 start medrol dose pack Exacerbati on of intermittent asthma 550703563 J45.21 wheezing with expiration will start steroid and zpack [id number] MD Patricia GRANDE (INDUSTRIAL SPRAYPAINTER) [address] [place] [address] 07/16/2022 11:01:56 07/22/2022 13:20:15 Acute right otitis media 964127619 H66.91 - Will extend antibiotic course due to persistent symptoms in right ear with exudative fluid noted behind TM- Recommende d use of intranasal corticoste roid daily to decrease rhinorrhea and prevent further fluid accumulati on behind TM, as Eustachian tube dysfunctio n is suspected- If no improvemen t after extended Abx, recommende d patient follow up with ENT for further management [id number] MD Patricia Sesay (Adult Med) [address] [place] [address] 09/01/2022 15:31:06 09/03/2022 08:38:00 Chronic rhinitis 24772133 J31.0 add zyrtec return if it doesn't improve Dysfunctio n of bilateral eustachian tubes 7875779280 161892 H69.93 [id number] Taty Garcia APN, [facility] (Adult Med) [address] [place] [address] 12/30/2022 17:04:01 01/04/2023 09:58:02 Stomach cramps 94532985 R10.9 -food log-start antispasmo dic med Overweight 439595383 E66 .3 advised low fat, low cholestero l diet, regular exercise and weight reduction. Referred otalgia 0899184 8 H92.09 pt reports ear pain, ears are clear, has hx of cerumen build up, advised debrox at home [id number] Taty Garcia, ZAIRA BARRAZA (Adult Med) [address] [place] [address] 02/04/2023 16:38:32 02/07/2023 11:15:44 Tinea corporis 38779680 B35.4 c/o rash under arm for over 1 month and it itches and bautista; will start antifungal cream, advised to stop shaving till clear, change razor head Abscess of oral tissue 54636243 K12.2 upper lipprn viscous lidocaine for pain Overweight 530978714 E66 .3 advised low fat, low cholestero l diet, regular exercise and weight reduction. [id number] Taty Garcia APN, FNP-C [facility] (Adult Med) [address] [place] [address] 06/16/2023 15:20:08 06/29/2023 15:42:59 Chronic back pain 691275610 G89.29 hx of back issues, prn topical patchprn muscle relaxerlas t xray was 2020, will get new image Overweight 270043884 E66 .3 advised low fat, low cholestero l diet, regular exercise and weight reduction. Depression screening 171 332866 Z13.31 depression screening positive-r epeat at followup [id number] Taty Garcia APN, FNP-C [facility] (Adult Med) [address] [place] [address] 08/03/2023 16:16:46 08/04/2023 14:13:50 Acute bilateral otitis media 846201855 H66.93 Rufus TM erythema and edema/bulg ing, start amox Herpangina 308780470 B08 .5 likely viral, dwp gargle and other remedies, Overweight 943630055 E66 .3 advised pt on proper nutrition and hydration while acutely ill, [id number] Taty aGrcia APN, FNP-C [facility] (Adult Med) [address] [place] [address] 10/14/2023 12:05:00 10/15/2023 15:41:15 Acute conjunctivitis of right eye 3402657057 17401 H10.31 right eye likely Bacterial Conjunctiv itis due to purulent discharge, start dropscare advised [id number] Taty Garcia APN, FNP-C [facility] (Adult Med) [address] [place] [address] 01/18/2024 15:48:35 01/21/2024 10:10:40 Adult health examination 842419407 Z00.01 work form completed [employer] is screening 342789465 Z11.1 needs for work Overweight 243666518 E66 .3 weight loss advised [id number] Taty Garcia APN, FNP-C [facility] (Adult Med) [address] [place] [address] 04/05/2024 16:12:00 04/07/2024 15:32:30 Acute bronchitis 46908427 J20.9 rhonchi clearing with cough, start zpack, dwp r/b/se History of asthma 686696 007 Z87.09 provided rescue inhaler, dwp if using more than 2x weekly for sob/wheezi ng to call office Health Concerns Section Related Observation LastModified by Organization Detai ls LastModified Time None Recorded Concern Status LastModified by Organization Details LastModified Time None Recorded Advance Directives Directive N: Payers Encounter Date Sequence Insurance Name Policy Number Policy Lizarraga Covered Member ID Lizarraga Member ID Guarantor Name 06/16/2023 1 [place] [facility] Mariposa Jasso [id number] Reji Jasso 06/16/2023 2 *SELF PAY* [facility] Jasso 08/03/2023 1 [place] [facility] Mariposa Jasso [id number] Reji Jasso 08/03/2023 2 *SELF PAY* [facility] Jasso 10/14/2023 1 [place] [facility] Mariposa Jasso [id number] Reji Jasso 01/18/2024 1 [facility] (MEDICAID HMO) [id number] Mariposa Jasso [id number] Reji Jasso 04/05/2024 1 [facility] (MEDICAID HMO) [id number] 0003 Mariposa Jasso [id number] Reji Jasso Notes Date Note Type Note Provider Name and Address Organization Details Recorded Time 06/16/2023 text/html lower left back pain for 3 weeks. muscle relaxer helped for a couple days. pain stopped for 4 days then came back 2 days ago and getting worseShe tries re-positioning but that does not help. The pain is worse than it was previously & now the muscle relaxers are not helping, either. When she lies down it's tolerable, but sitting anywhere is really bad. She still cannot tell exactly where the pain is coming from, she just knows it's in her lower back side somewhere. Taty Garcia APN, FNP-C Attn: Accounting,[address] [place], [address], [facility] 06/23/2023 15:41:50 08/03/2023 text/html painful sore on roof of mouth- noticed it 3 weeks ago and went away before last appt. Causing throat to be sore.pt c/o abdominal pain- denies diarrhea and constipation.Nick estion started 2 days- stuffy nose in the AM Taty Garcia APN, FNP-C Attn: [address] [place], [address], [facility] 08/03/2023 17:59:42 10/14/2023 text/html Pt has pink eye. She thinks it started yesterday. Her friends daughter had double pink eye. She states it does get wet and gets very dry and raw feeling. When she wakes up her eye seals shut. Taty Garcia APN, FNP-C Attn: Accounting,[address] [place], [address], [facility] 10/14/2023 12:40:45 01/18/2024 text/html needs work physical- needs tb test. needs copy of immunizations. Taty Garcia APN, FNP-C Attn: Accounting[address] [place], [address], [facility] 01/18/2024 17:46:00 04/05/2024 text/html wet cough for 3 weeks. chest bautista on and off. coughing up greenish phlegm occasionally. taking otc dayquil, nyquil and sudafed. son has sx and dx with a cold. denies fever Taty Garcia APN, FNP-C Attn: Accounting,[address] [facility] [place], [address], [place] [facility] 04/05/2024 16:32:25 OBGyn Episode No OBEpisode recorded.
--- OUTSIDE RECORDS SUMMARY | 2024-07-28 12:28 | XMS_ITS | Referral Summary ---
Author Organization [facility] Address [address] [place] [address] Care Team Providers Care Web Support Engineer Name Role Phone Taty Scott NP Primary Care Provider [phone] Allergies No known active allergies Medications acetaminophen (TYLENOL) 500 mg tablet Take 1-2 tablets (500-1,000 mg total) by mouth every 6 (six) hours as needed for pain (1 tablet for mild to moderate pain. 2 tablets for severe pain). 30 tablet 02/25/20 18 Active Additional Information Patient not taking.Reported on 09/15/2019 ondansetron ODT (ZOFRAN-ODT) 4 mg disintegrating tablet Dissolve 1 tablet oral every 4 hours as needed for nausea or vomiting. 15 tablet 06/20/19 19 Active Additional Information Patient not taking.Reported on 09/15/2019 naproxen (NAPROSYN) 375 mg tablet Take 1 tablet (375 mg total) by mouth 2 (two) times a day with meals As directed for pain 20 tablet 05/18/19 20 Active Additional Information Patient not taking.Reported on 09/15/2019 tiZANidine (ZANAFLEX) 4 mg tablet Take 1 tablet (4 mg total) by mouth every 8 (eight) hours as needed (To relax muscles) Caution may be sedating 20 tablet 05/18/19 20 Active Additional Information Patient not taking.Reported on 09/15/2019 diphenoxylate-atro pine (LOMOTIL) 2.5-0.025 mg per tabletIndications: diarrhea Take 1 tablet by mouth 4 (four) times a day as needed for diarrhea 10 tablet 08/10/19 20 Active Additional Information Patient not taking.Reported on 09/15/2019 FE 1.5/30, 28, 1.5 mg-30 mcg (21)/75 mg (7) per tablet Take 1 tablet by mouth daily 08/31/19 Active ergocalciferol (VITAMIN D) 50,000 unit capsule TAKE 1 CAPSULE(S) EVERY WEEK BY MOUTH WITH MEALS FOR 30 DAYS. 08/31/19 Active triamcinolone (NASACORT) 55 mcg nasal inhalerIndications :Allergic Rhinitis,Chronic Non-Allergic Rhinitis Administer 2 sprays into each nostril daily Can increase to twice daily if symptoms persist 16.9 mL 11 09/15/19 Active Additional Information Patient not taking.Reported on 03/08/2021 montelukast (Singulair) 10 mg tabletIndications: Allergic Rhinitis,Exercise- Induced Bronchospasm Prevention Take 1 tablet (10 mg total) by mouth nightly 30 tablet 09/15/19 Active Additional Information Patient not taking.Reported on 03/08/2021 albuterol HFA (ProAir HFA) 90 mcg/actuation inhalerIndications :Cough Inhale 1-2 puffs every 4 (four) hours as needed for wheezing or shortness of breath 8.5 g 09/15/19 Active Additional Information Patient not taking.Reported on 03/08/2021 Active Problems Problem Noted Date Diagnosed Date Right shoulder strain, initial encounter 020 Social History Tobacco Use Types Packs/Day Years Used Date Smoking Tobacco: Former Smokeless Tobacco: Never Alcohol Use Standard Drinks/Week Comments No 0 (1 standard drink = 0.6 oz pur e alcohol) Personal Safety Answer Date Recorded Getting School Help Needed Not on file 06/24 Comments No Sex and Gender Information Value Date Recorded Sex Assigned at Not on file 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 Gender Identity Not on file Sexual Orientation Not on file Last Filed Vital Signs Vital Sign Reading Time Taken Comments Blood Pressure 119/70 08/05/2021 11:08 AM CDT Pulse 79 08/05/2021 11:08 AM CDT Temperature 37.3 C (99.2 F) 03/08/2021 3:46 PM CDT Respiratory Rate 18 08/05/2021 11:08 AM CDT Oxygen Saturation 98% 03/08/2021 3:46 PM CDT Inhaled Oxygen Concentration - - Weight 74.4 kg (164 lb) 08/05/2021 11:08 AM CDT Height 170.2 cm (5' 7 ) 08/05/2021 11:08 AM CDT Body Mass Index 25.69 08/05/2021 11:08 AM CDT Plan of Treatment Not on file Insurance [employer] OPEN ACCESS Member Subscriber Plan / Payer (Ef fective 2018-Present) Name:Deny Barnes Relation to Subscriber:Self Name:Deny Barnes Payer ID:[id number] (NAIC) Type:[employer] HMO/PPO Address: [facility] [address] [place] [address] [facility] IDHI [facility] OPEN ACCESS [facility] [place] [address] IDPA Care Teams Web Support Engineer Relationship Specialty Start Date End Date Taty Scott NP [address] [place] [address] PCP - General 02/24/18
--- OUTSIDE RECORDS SUMMARY | 2024-07-28 12:28 | XMS_ITS | Clinical Summary ---
Author Organization [facility] Address [address] [place] [address] Care Team Providers Care Chemical Dependency Nurse Name Role Phone Taty Scott NP Primary Care Provider Allergies No known active allergies Medications acetaminophen [...] Additional Information Patient not taking.Reported on 09/15/2019 June FE 1.5/30, 28, 1.5 mg-30 mcg (21)/75 [...] twice daily if symptoms persist 16.9 mL 09/15/19 Active Additional Information Patient not taking.Reported [...] Date Right shoulder strain, initial encounter 020 Surgical History Surgery Date Site/Laterality Comments NO PAST SURGERIES Medical History Medical History Date Comments Asthma Scoliosis Family History Medical History Relation Name Comments Heart attack Father Heart disease Father Relation Name Status Comments Father Social History Tobacco Use Types Packs/Day Years [...] on file 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 Gender Identity Not on file Sexual Orientation Not on file Obstetrics History Para Term AB IAB SAB Ectopic Multiple Livin g Live Births 2 Date Outcome GA Total Labor Labor/2nd/3rd Weight Sex Type Anes PTL Cindi A1 A5 Name Clin Last Filed Vital Signs Vital Sign Reading [...] 08/05/2021 11:08 AM CDT Plan of Treatment Health Maintenance Due Date Last Done Comments Cervical Cancer Screening 1997 Depression Screening 1997 Hepatitis C Screening 1997 Regular Well Visit/Exam 18-64 2015 Influenza Vaccine (#1) 2024 9, 02/14/2013, 01/29/2012, Additional history exists DTaP/Tdap/Td Vaccine (9 - Td or Tdap) 11/05/2027 11/04/2017, 10/12/2007, 10/12/2007, Additional history exists Hepatitis B Screening Completed 02/12/1998 , 1997, 1997 Varicella Vaccines Completed 10/12/2007, 07/24/1999 HPV Vaccines Completed 05/01/2008, 08/09/2007, 10/12/2007 Pneumococcal vaccine <65 Aged Out No longer eligible based on patient's age to complete this topic Insurance [employer] OPEN ACCESS [facility] IDPA [facility] CIGNA OPEN ACCESS CIGNA HEALTHCARE [facility] Care Teams Chemical Dependency Nurse Relationship Specialty Start Date End Date Taty Scott NP [address] [place] [address] [facility] - General 02/24/18
--- OUTSIDE RECORDS SUMMARY | 2024-07-28 12:28 | XMS_ITS | Clinical Summary ---
Author Organization [facility] Address [address] [facility] [place] [address] Care Team Providers Care Email Marketer Name Role Phone Sander Condon MD Primary Care Provider Source Comments [facility],non-owned Affiliates and Associated Physician Practices is amultiple site organization consisting of ambulatory clinics and hospital sitesin [place], [place], [place] and [place]. This disclosure is being madepursuant to the Care Everywhere program and may not contain all information available regarding this patient. Last updated 18.[facility] Allergies No known active allergies Medications * Be aware that medications may not be up to date on this document. Alwaysverify current medications with the patient. Medication Sig Dispensed Refills Start Date End Date Status methylphenidate CR (CONCERTA) 36 MG tablet Take 36 mg by mouth every morning. Active citalopram (CELEXA) 10 MG tablet Take 10 mg by mouth once daily. Active Active Problems Problem Noted Date Diagnosed Date Low back pain 08/25/2012 Social History Tobacco Use Types Packs/Day Years Used Date Smoking Tobacco: Never Assessed Sex and Gender Information Value Date Recorded Sex Assigned at Not on file Gender Identity Not on file Sexual Orientation Not on file Plan of Treatment Health Maintenance Due Date Last Done Comments PAP SMEAR 1997 HIV SCREENING 2012 HEPATITIS C SCREENING 07/01/2015 DTAP/TDAP/TD VACCINES (1 - Tdap) 2016 HEPATITIS B VACCINE (1 of 3 - 19+ 3-dose series) 2016 COVID-19 VACCINE (1 - 2024-2 5 season) 2024 INFLUENZA VACCINE (#1) 2024 DEPRESSION SCREENING 05/10/2024 ZOSTER VACCINE (1 of 2) 2047 HIB VACCINE Aged Out No longer eligi ble based on patient's age to complete this topic HPV VACCINE Aged Out No longer eligi ble based on patient's age to complete this topic MENINGOCOCCAL (Group B) VACC INE SHARED DECISION-MAKING Aged Out No longer eligibl e based on patient's age to complete this topic MENINGOCOCCAL GROUPS A/C/Y/W VACCINE Aged Out No longer eligible b ased on patient's age to complete this topic PNEUMOCOCCAL VACCINE Aged Out No long er eligible based on patient's age to complete this topic Care Teams Email Marketer Relationship Specialty Start Date End Date Sander Condon MD [address] [place] [id number] PCP - General 08/12/12
--- OUTSIDE RECORDS SUMMARY | 2024-07-28 12:38 | XMS_ITS | Data Portability ---
Author Organization [facility] [place] Address [address] [place] [address] [place] [address] Assessment No assessment recorded. Plan of Treatment Reminders Order Date Submit Date Provider Last Modified By Organization Details Last Modified Time Details Appointments None recorded. Lab test, urine 2019 020 [email or web address], [address], [place], [address], 0 10:07:05 Referral None recorded. Procedures None recorded. Surgeries None recorded. Imaging US, transvagina l 2019 020 [email or web address] [place], [address], [place], [address], 0 16:57:18 Medication Orders Levora-28 0.15 mg-0.03 mg tablet 2021 022 REJI [facility] #[id number], [address] [place], [address], 2 10:40:14 Keflex 500 mg capsule 2019 020 [email or web address] 1 [facility]acy #[id number], [address] [place], [address], 0 12:00:13 Patient TargetsNo targets recorded. Patient Instructions Encounter Date Encounter Id Patient Instructions Last Modified By Organization Details Last Modified Time 11/17/2019 [id number] no mass, finish antibiotic and f/u breast exam in 2 weeks Not available 11/17/2019 09:52:58 12/01/2019 [id number] continue to monitor await mammogram results Not available 12/01/2019 12:12:39 Reason for Referral None Reported. Results Created Date Observation Date Name Description Value Unit Range Abnormal Flag Note LastModifiedBy Organization Detail LastModifiedTime 08/28/19 20 08/29/2019 vitam in D, 25-hy droxy + 1,25- dihyd dayami, serum vitamin D 25-hydroxy 22.2 NG/mL 30.0-1 00.0 low Inter preta tion of Vitam in D 25 OH: < 20 ng/mL - Defic iency 20 - 29 ng/mL - Insuf ficie ncy 30 - 100 ng/mL - Suffi cienc y > 100 ng/mL - Super -ther apeut ic- toxic ity may occur above this level . Clini john corre latio n requi red. Not Available [facility] ([facility] [employer]) [address] [place] [address] [address], [place], [address], 08/29/2019 16:26:06 08/28/19 20 08/29/2019 vitam in D, 25-hy droxy + 1,25- dihyd dayami, serum vitamin D, 1, 25 dihydroxy 41.6 pg/mL 19.9-7 9.3 Not Available [facility] ([facility] [employer]) [address] [place] [address] [address], [place], [address], 08/29/2019 16:26:06 08/28/19 20 08/29/2019 CBC w/ auto diff WBC 4.7 K/uL 3.8-11 .5 Not Available [facility] ([facility]) [address] [place] [address] Dr [address], [place], [address], 08/29/2019 16:26:07 08/28/19 20 08/29/2019 CBC w/ auto diff red blood cell count (RBC) 4.96 M/mm3 3.60-5 .30 Not Available [facility] ([facility]) [address] [place] [address] [address], [place], [address], 08/29/2019 16:26:07 08/28/19 20 08/29/2019 CBC w/ auto diff hemoglobin (HGB) 14.4 gm/dL 11.5-1 5.5 Not Available [facility] ([facility]) [address] [place] [address] [address], [place], [address], 08/29/2019 16:26:07 08/28/19 20 08/29/2019 CBC w/ auto diff hematocrit (HCT) 43.4 % 35.2-4 6.4 Not Available [facility] ([facility]) [address] [place] [address] Dr [address], [place], [address], 08/29/2019 16:26:07 08/28/19 20 08/29/2019 CBC w/ auto diff MCV 87.5 fL 79.0-9 9.0 Not Available [facility] ([facility]) [address] [place] [address] Dr [address], [place], [address], 08/29/2019 16:26:07 08/28/19 20 08/29/2019 CBC w/ auto diff MCH 29.0 pg 26.9-3 5.0 Not Available [facility] ([facility]) [address] [place] [address] [address], [place], [address], 08/29/2019 16:26:07 08/28/19 20 08/29/2019 CBC w/ auto diff MCHC 33.2 g/dL 30.4-3 4.8 Not Available [facility] ([facility]) [address] [place] [address] [address], [place], [address], 08/29/2019 16:26:07 08/28/19 20 08/29/2019 CBC w/ auto diff RDW 38.3 fL 38.6-5 3.8 low Not Available [facility] ([facility]) [address] [place] [address] [address], [place], [address], 08/29/2019 16:26:07 08/28/19 20 08/29/2019 CBC w/ auto diff platelet count 248 K/cum m 137-39 7 Not Available [facility] ([facility]) [address] [place] [address] [address], [place], [address], 08/29/2019 16:26:07 08/28/19 20 08/29/2019 CBC w/ auto diff neutrophils automated 53.9 % 41.0-7 7.0 Not Available [facility] ([facility]) [address] [place] [address] [address], [place], [address], 08/29/2019 16:26:07 08/28/19 20 08/29/2019 CBC w/ auto diff lymphocytes automated 34.9 % 14.0-4 8.0 Not Available [facility] ([facility]) [address] [place] [address] [address], [place], [address], 08/29/2019 16:26:07 08/28/19 20 08/29/2019 CBC w/ auto diff monocytes automated 10.2 % 4.0-13 .0 Not Available [facility] ([facility]) [address] [place] [address] [address], [place], [address], 08/29/2019 16:26:07 08/28/19 20 08/29/2019 CBC w/ auto diff eosinophils automated 0.6 % 0.0-8. 0 Not Available [facility] ([facility]) [address] [place] [address] [address], [place], [address], 08/29/2019 16:26:07 08/28/19 20 08/29/2019 CBC w/ auto diff basophils automated 0.2 % 0.0-1. 5 Not Available [facility] ([facility]) [address] [place] [address] [address], [place], [address], 08/29/2019 16:26:07 08/28/19 20 08/29/2019 CBC w/ auto diff immature granulocyte automated 0.2 % 0.0-1. 0 Not Available [facility] ([facility]) [address] [place] [address] [address], [place], [address], 08/29/2019 16:26:07 08/28/19 20 08/29/2019 prola ctin, serum prolactin 13.10 NG/mL 4.79-2 3.30 Not Available [facility] ([facility]) [address] [place] [address] [address], [place], [address], 08/29/2019 16:26:07 08/28/19 20 08/29/2019 TSH, serum or plasm a TSH reflex to FT4 1.30 mU/L 0.27-4 .20 Not Available [facility] ([facility]) [address] [place] [address], [place], [address], 08/29/2019 16:26:07 03/07/20 20 03/07/2020 pregn tammie test, urine HCG negati ve Not Available [place] [address], [place], [address], 03/07/2020 15:18:28 08/31/19 20 US, trans vagin al No observ ation record ed. harpreet [address], [place], [address], 09/06/2019 15:46:39 Result Notes None recorded. Problems Name Problem SNOMED Code Status Onset Date Resolution Date Notes Provider Name and Address Organization Details Recorded Time Abdomina l pain 96120355 Completed 201806/05/2021 Unspecif ied abdomina l pain;Pra ctice ID: [address] [facility], [place] - [facility] 2 11:00:48 Gestatio n period, 36 weeks [id number] Completed 201806/05/2021 36 weeks gestatio n of pregnanc y;Practi ce ID: 0001 Jane Godfrey nancy, [facility] 2 11:01:35 Pregnanc y, childbir th and puerperi um finding Completed 201806/05/2021 Encntr for suprvsn of normal first preg, third trimeste r;Practi ce ID: 0001 Jane cruz, [facility] 2 11:01:29 False labor at or after 37 complete d weeks of gestatio n [id number] Completed 201806/05/2021 False labor at or after 37 complete d weeks of gestatio n;Practi ce ID: 0001 Jane cruz, [facility] 2 11:00:45 Gestatio n period, 38 weeks [id number] Completed 201806/05/2021 38 weeks gestatio n of pregnanc y;Practi ce ID: 0001 Jane cruz, [facility] 2 11:00:34 Prematur e labor 1943470 Completed 201806/05/2021 labor without delivery , unspecif ied trimeste r;Practi ce ID: 0001 Jane cruz, [facility] 2 11:01:37 Term pregnanc y delivere d [id number] Completed 201806/05/2021 Encounte r for full-ter m uncompli cated delivery ;Practic e ID: 0001 Jane cruz, [facility] 2 11:00:53 Single live [id number] Completed 201806/05/2021 Single live ;Pr actice ID: 0001 Jane cruz, [facility] 2 11:00:43 Gestatio n period, 39 weeks 91954835 Completed 201806/05/2021 39 weeks gestatio n of pregnanc y;Practi ce ID: 0001 Jane cruz, [facility] 2 11:01:48 Pelvic and perineal pain 101614147 Completed 201806/05/2021 Pelvic and perineal pain;Pra ctice ID: 0001 Jane cruz, [facility] 2 11:01:19 Lochia finding Completed 201806/05/2021 Encounte r for routine postpart um follow-u p;[facility]i ce ID: 0001 [facility] 11:01:30 Disorder of skin and/or subcutan eous tissue 71391635 Completed 201806/05/2021 Disorder of the skin and subcutan eous tissue, unspecif ied;Prac nela ID: 0001 [facility] 11:01:50 Low back pain 799188556 Completed 201806/05/2021 Low back pain;Rec orded Elsewher e: No Locat ion: [facility] S ource: EHR Crinkling Machine Operator gm: N Practi ce ID: 0001 Rufus lable Time: 11:30:00 AM Jane cruz [facility] 2 11:01:20 Disorder of skin appendag e 230604364 Completed 201806/05/2021 Follicul ar disorder , unspecif ied;Jasson rded Elsewher e: No Locat ion: [facility] S ource: EHR Crinkling Machine Operator gm: N Practi ce ID: 0001 Rufus lable Time: 11:30:00 AM Jane cruz [facility] 2 11:00:55 Pregnanc y, childbir th and puerperi um finding Completed 201806/05/2021 Encounte r for supervis ion of normal 1st pregnanc y;Record ed Elsewher e: No Locat ion: Tariq johnson [facility] S ource: EHR Crinkling Machine Operator gm: N Kelly ce ID: 0001 Rufus lable Time: 02:15:00 PM Jane cruz, [facility] 2 11:01:26 Disorder of pregnanc y Completed 201806/05/2021 Polyhydr amnios, third trimeste r, not applicab le or unsp;Rec orded Elsewher e: No [facility]: E[facility] Crinkling Machine Operator gm: Christine Mendoza ce ID: 0001 Rufus lable Time: 10:00:00 AM Jane cruz, [facility] 2 11:01:06 Gestatio n period, 30 weeks [id number] Completed 201806/05/2021 30 weeks gestatio n of pregnanc y;Record ed Elsewher e: No [facility]at [facility] S ource: EHR Crinkling Machine Operator gm: Christine Mendoza ce ID: 0001 Rufus lable Time: 08:15:00 AM Jane cruz, [facility] 2 11:01:42 Antenata l screenin g Completed 201806/05/2021 Encounte r for antenata l screenin g for nuchal transluc ency;Rec orded Elsewher e: No [facility]: EHR Crinkling Machine Operator gm: N Kelly ce ID: 0001 Rufus lable Time: 03:30:00 PM Jane cruz [facility] 2 11:01:09 Acute vaginiti s [id number] Completed 201806/05/2021 Vaginiti s;Record ed Elsewher e: No [facility]at ion: [facility]: EHR [employer]inkling Machine Operator gm: N Heribertoti ce ID: 0001 Rufus lable Time: 02:45:00 PM Jane cruz [facility] 2 11:01:13 Gestatio n period, 35 weeks [id number] Completed 201806/05/2021 35 weeks gestatio n of pregnanc y;Record ed Elsewher e: No Locat ion: [facility] S ource: EHR Crinkling Machine Operator gm: N Heribertoti ce ID: 0001 Rufus lable Time: 10:00:00 AM Jane cruz [facility] 2 11:01:51 Increase d frequenc y of urinatio n [id number] Completed 201806/05/2021 Frequenc y of micturit ion;Jasson rded Elsewher e: No Locat ion: [facility] S ource: EHR Crinkling Machine Operator gm: N Heribertoti ce ID: 0001 Rufus lable Time: 09:45:00 AM Jane cruz [facility] 2 11:00:42 Complica tion of pregnanc y, childbir th and/or puerperi um [id number] Completed 201706/05/2021 Oth diseases and conditio ns compl preg/chl dbrth;Re corded Elsewher e: No Locat ion: [facility] S ource: EHR Crinkling Machine Operator gm: N Heribertoti ce ID: 0001 Rufus lable Time: 10:15:00 AM Jane cruz [facility] 2 11:01:08 Emotiona l state finding Completed 201806/05/2021 Anxiety depressi on;Recor ded Elsewher e: No Locat ion: [facility] S ource: EHR Crinkling Machine Operator gm: N Practi ce ID: 0001 Rufus lable Time: 04:30:00 PM Jane cruz [facility] 2 11:00:36 Pregnanc y detectio n examinat ion Completed 201706/05/2021 Encounte r for pregnanc y test, result positive ;Recorde d Elsewher e: No Locat ion: [facility] S ource: EHR Crinkling Machine Operator gm: N Heribertoti ce ID: 0001 Rufus lable Time: 10:15:[address] [facility] 2 11:01:46 Gestatio n period, 34 weeks [id number] Completed 201806/05/2021 34 weeks gestatio n of pregnanc y;Record ed Elsewher e: No Locat ion: [facility] S ource: EHR Crinkling Machine Operator gm: N Heribertoti ce ID: 0001 Rufus lable Time: 10:45:[address] [facility], [facility] [address] 11:[address] Concept Completed 201706/05/2021 Encntr for gyroscope technician exam (general ) (routine ) w/o abn findings ;Recorde d Elsewher e: No Locat ion: [facility] S ource: EHR Crinkling Machine Operator gm: N Heribertoti ce ID: 0001 Rufus lable Time: 10:15:00 AM Jane cruz, [facility] 2 11:01:24 Rubella screenin g status [id number] Completed 201806/05/2021 Encounte r for antenata l screenin g, unspecif ied;Jasson rded Elsewher e: No Locat ion: [facility] S ource: EHR Crinkling Machine Operator gm: N Heribertoti ce ID: 0001 Rufus lable Time: 02:15:00 PM Jane cruz, [facility] 2 11:01:11 Pregnanc y, childbir th and puerperi um finding Completed 201806/05/2021 Encntr for suprvsn of normal first preg, second trimeste r;Record ed Elsewher e: No Locat ion: [facility] S ource: EHR Crinkling Machine Operator gm: N Heribertoti ce ID: 0001 Rufus lable Time: 10:00:00 AM Jane Godfrey nancy [facility] 2 11:01:27 Normal pregnanc y in [place] [id number] 4106 Completed 201806/05/2021 Encounte r for supervis ion of other normal pregnanc y, 3rd trimeste r;Record ed Elsewher e: No [facility]: E[facility] Crinkling Machine Operator gm: N Heribertoti ce ID: 0001 Rufus lable Time: 09:00:00 AM Jane Godfrey cruz [facility] [address] 11:01:[address] Concept Completed 201806/05/2021 Matern care for abnlt fetl hrt rate or rhym, 3rd tri, unsp;Rec orded Elsewher e: No Locat ion: [facility] S ource: EHR Crinkling Machine Operator gm: N Heribertoti ce ID: 0001 Rufus lable Time: 10:45:00 AM Jane Godfrey nancy, [facility] [address] 11:01:[address] Concept Completed 201806/05/2021 Decrease d movement s, third trimeste r, unsp;Rec orded Elsewher e: No Locat ion: [facility]ice lacey [facility] S ource: EHR Crinkling Machine Operator gm: N Heribertoti ce ID: 0001 Rufus lable Time: 09:30:00 AM Jane Godfrey nancy [facility] 2 11:01:01 Uses combined oral contrace ption [id number] Completed 201806/05/2021 Encounte r for repeat rx for control pill;Rec orded Elsewher e: No Locat ion: [facility]ice lacey [facility] S ource: EHR Crinkling Machine Operator gm: N Heribertoti ce ID: 0001 Rufus lable Time: 11:15:00 AM Jane cruz, [facility] 2 11:01:17 Finding of contents of cervix [id number] Completed 201706/05/2021 Weeks of gestatio n of pregnanc y not specifie d;Record ed Elsewher e: No Locat ion: [facility] S ource: EHR Crinkling Machine Operator gm: N Practi ce ID: 0001 Rufus lable Time: 11:30:00 AM Jane cruz, [facility] 2 11:01:14 Antenata l screenin g for malforma tion Completed 201806/05/2021 Encounte r for antenata l screenin g for malforma tions;Re corded Elsewher e: No Locat ion: [facility] S ource: EHR Crinkling Machine Operator gm: N Practi ce ID: 0001 Rufus lable Time: 08:15:00 AM Jane Donahue nancy, [facility] 2 11:01:43 Uterine size for dates discrepa ncy Completed 201806/05/2021 Uterine size-julia e discrepa ncy, third trimeste r;Record ed Elsewher e: No Locat ion: [facility] S ource: EHR Crinkling Machine Operator gm: N Practi ce ID: 0001 Rufus lable Time: 08:15:00 AM Jane cruz, [facility] 2 11:00:57 Mental disorder in mother complica ting pregnanc y [id number] Completed 201806/05/2021 Oth mental disorder s complica ting pregnanc y, unsp trimeste r;Practi ce ID: 0001 Jane Godfreycourtney cruz, [facility] 2 11:01:41 Finding related to sleep Completed 201806/05/2021 Insomnia , unspecif ied;Prac nela ID: 0001 Jane Godfrey cruz, [facility] 2 11:00:40 Gestatio n period, 17 weeks [id number] Completed 201806/05/2021 17 weeks gestatio n of pregnanc y;Practi ce ID: 0001 Jane Godfrey cruz, [facility] 2 11:01:39 Gestatio n period, 18 weeks [id number] Completed 201806/05/2021 18 weeks gestatio n of pregnanc y;Practi ce ID: 0001 Jane cruz, [facility] 2 11:01:16 Gestatio n period, 25 weeks [id number] Completed 201806/05/2021 25 weeks gestatio n of pregnanc y;Practi ce ID: 0001 Jane cruz, [facility] 2 11:01:44 Gestatio n period, 29 weeks [id number] Completed 201806/05/2021 29 weeks gestatio n of pregnanc y;Practi ce ID: 0001 Jane cruz, [facility] 2 11:01:32 Spotting per vagina in pregnanc y 578294122 Completed 201806/05/2021 Spotting complica ting pregnanc y, third trimeste r;Practi ce ID: 0001 Jane cruz, [facility] 2 11:01:21 Gestatio n period, 31 weeks [id number] Completed 201806/05/2021 31 weeks gestatio n of pregnanc y;Practi ce ID: 0001 Jane cruz, [facility] 2 11:01:38 Pregnanc y, childbir th and puerperi um finding Completed 201806/05/2021 Oth pregnanc y related conditio ns, third trimeste r;Practi ce ID: 0001 Jane cruz, [facility] 2 11:00:59 Gestatio n period, 32 weeks [id number] Completed 201806/05/2021 32 weeks gestatio n of pregnanc y;Practi ce ID: 0001 Jane cruz, [facility] [address] 11:01:[address] Concept Completed 201806/05/2021 Decrease d movement s, unsp trimeste r, unsp;Pra ctice ID: 0001 Jane cruz, [facility] 2 11:01:03 False labor before 37 complete d weeks of gestatio n [id number] Completed 201806/05/2021 False labor before 37 complete d weeks of gest, third tri;Prac nela ID: 0001 Jane cruz, [facility] 2 11:00:31 Problem Notes None recorded. Procedures Surgical History None recorded. Imaging Results Imaging Date Name Status LastModified by Organization Details LastModified Time 08/31/2019 US, transvaginal completed layran Juliet [address], [place], [address], 09/06/2019 15:46:39 Procedure Notes None recorded. Medical Equipment None Reported. Allergies No known drug allergies Medications Name Sig Start Date Stop Date Status Note LastModified by Organization Details LastModified Time amoxicill in 500 mg capsule TAKE 1 CAPSULE BY MOUTH 3 TIMES A DAY UNTIL GONE 06/05 completed Not Available Not Available Not Available buspirone 5 mg tablet take 1 tablet by oral route 2 times every day 06/05 completed Not Available Not Available Not Available naproxen 375 mg tablet 08/30 completed Not Available Not Available Not Available clindamyc in HCl 300 mg capsule take 1 capsule by oral route every 12 hours 08/30 completed Not Available Not Available Not Available nifedipin e 20 mg capsule 08/30 completed Not Available Not Available Not Available Lidocaine Viscous 2 % mucosal solution 08/30 completed Not Available Not Available Not Available tizanidin e 4 mg tablet 08/30 completed Not Available Not Available Not Available benzonata te 200 mg capsule 06/09 completed Not Available Not Available Not Available metronida zole 0.75 % (37.5 mg/5 gram) vaginal gel insert 1 applicat orful by vaginal route at bedtime for 5 nights 08/30 completed Not Available Not Available Not Available ondansetr on HCl 4 mg tablet 08/30 completed Not Available Not Available Not Available prednison e 20 mg tablet 08/30 completed Not Available Not Available Not Available dexametha sone 6 mg tablet 06/09 completed Not Available Not Available Not Available diphenoxy late-atro pine 2.5 mg-0.025 mg tablet 08/30 completed Not Available Not Available Not Available metronida zole 500 mg tablet take 1 tablet by oral route every 12 hours 08/30 completed Not Available Not Available Not Available Zantac 150 mg tablet take 1 tablet by oral route 2 times every day 12/14 completed Prescrib ed Elsewher e: No Locat ion: [facility] M odify By: [email or web address] Encoun ter DateTime : 09/29/19 10:00:00 AM Not Available Not Available Not Available terconazo le 80 mg vaginal supposito ry insert 1 supposit ory by vaginal route every day at bedtime 08/30 completed Not Available Not Available Not Available cephalexi n 500 mg capsule Take 1 capsule every 12 hours by oral route. 11/30 completed Not Available Not Available Not Available ergocalci ferol (vitamin D2) 1,250 mcg (50,000 unit) capsule Take 1 capsule every week by oral route with meals for 30 days. 11/16 completed Not Available Not Available Not Available zolpidem 10 mg tablet take 1 tablet by oral route every day at bedtime 08/30 completed Not Available Not Available Not Available albuterol sulfate HFA 90 mcg/actua tion aerosol inhaler active Not Available Not Available Not Available Ambien 5 mg tablet take 1 tablet by oral route every day at bedtime 08/05 completed Prescrib ed Elsewher e: No Locat ion: [facility] odify By: [email or web address] Encounte r DateTime : 06/16/19 03:00:00 PM Not Available Not Available Not Available dicyclomi ne 10 mg capsule 08/30 completed Not Available Not Available Not Available naproxen 500 mg tablet 08/30 completed Not Available Not Available Not Available buspirone 15 mg tablet TAKE 1 TABLET BY MOUTH TWICE A DAY 11/16 completed Not Available Not Available Not Available Lexapro 10 mg tablet TAKE 1 TABLET BY MOUTH EVERY DAY 12/14 completed Prescrib ed Elsewher e: No Locat ion: [facility] odify By: [email or web address] z Encoun ter DateTime : 09/06/19 03:21:37 PM Not Available Not Available Not Available 05/29 (28) 1 mg-20 mcg (21)/75 mg (7) tablet TAKE 1 TABLET BY MOUTH EVERY DAY 11/16 completed Not Available Not Available Not Available (28) 1.5 mg-30 mcg (21)/75 mg (7) tablet TAKE 1 TABLET BY MOUTH EVERY DAY 06/05 completed Not Available Not Available Not Available nitrofura ntoin monohydra te/macroc rystals 100 mg capsule take 1 capsule by oral route every 12 hours with food 08/30 completed Not Available Not Available Not Available Keflex 11/16 completed Not Available Not Available Not Available Altavera (28) 0.15 mg-0.03 mg tablet TAKE 1 TABLET BY MOUTH EVERY DAY active Not Available Not Available No t Available 28 mg-800 mcg tablet 12/14 completed Prescrib ed Elsewher e: Yes Loca tion: [facility] odify By: [email or web address] z Encoun ter DateTime : 05/12/19 02:15:00 PM Not Available Not Available Not Available Vitals Date Recorded Body height Body mass index (BMI) Body weight Systolic blood pressure Diastolic blood pressure Provider Name and Address Organization Details Last Updated DateTime 06/09/2021 170.18 cm 24.6 kg/m2 59618 g 117 mm[Hg] 76 mm[Hg] Jane Donahue [facility] 2 10:27:54 Date Recorded Body height Body mass index (BMI) Body weight Systolic blood pressure Diastolic blood pressure Provider Name and Address Organization Details Last Updated DateTime 11/17/2019 2042.16 cm 0.2 kg/m2 45625 g 123 mm[Hg] 79 mm[Hg] Cleo Puckett [facility] 0 09:25:12 Date Recorded Body height Body mass index (BMI) Body weight Systolic blood pressure Diastolic blood pressure Provider Name and Address Organization Details Last Updated DateTime 08/31/2019 2042.16 cm 0.2 kg/m2 43157.15 g 118 mm[Hg] 80 mm[Hg] Nasreen Shafer [facility] 0 15:03:21 Date Recorded Body height Body mass index (BMI) Body weight Systolic blood pressure Diastolic blood pressure Provider Name and Address Organization Details Last Updated DateTime 12/01/2019 2042.16 cm 0.2 kg/m2 13216.37 g 131 mm[Hg] 70 mm[Hg] Cleo Puckett [facility] 0 12:00:09 Date Recorded Body mass index (BMI) Body weight Systolic blood pressure Diastolic blood pressure Provider Name and Address Organization Details Last Updated DateTime 03/07/2020 0.2 kg/m2 56603.96 g 136 mm[Hg] 79 mm[Hg] Nasreen Shafer [facility] 03/07/2020 14:51:38 Social History Question Answer Notes LastModified by Organizat ion Details LastModified Time Tobacco Smoking Status Never Smoker Nasreen Shafer [facility] 08/28/2019 13:48:11 What Is Your Level Of Alcohol Consumption? Occasional [email or web address] Information not available 11/17/2019 Do You Or Have You Ever Used E-cigarettes Or Vape? Never Used Electronic Cigarettes [email or web address] Information not available 11/17/2019 What Was The Date Of Your Most Recent Tobacco Screening? 12/01/2019 [email or web address] Information not available 12/01/2019 Do You Or Have You Ever Used Smokeless Tobacco? Never Used Smokeless Tobacco Information not available 11/17/2019 How Much Tobacco Do You Smoke? No [email or web address] Information not available 11/17/2019 Sex: Unknown Functional Status Question Answer Note LastModified by Organizat ion Details LastModified Time What is your exercise level? Occasional [email or web address] Information not available 11/17/2019 Mental Status None recorded. Family History Relationship Description Onset Age of this Age Resolved Age Notes LastModified by Organization Details LastModified Time Mother Hypercholest erolemia [email or web address] Not available 2019 14:51:25 Father Hypercholest erolemia [email or web address] Not available 2019 14:51:25 Father Hypertensive disorder [email or web address] Not available 2019 14:51:38 Maternal Grandmother Hypertensive disorder [email or web address] Not available 2019 14:51:38 Brother Asthma [email or web address] Not available 0 08/31/2019 14:51:50 Sister Asthma [email or web address] Not available 14:51:50 Medical History Condition Response Asthma Y Gynecological History Statement/Question Response Abnormal Pap N Flow Heavy Date of LMP 06/09/2021 On BCP's at Conception? N Was last menstrual period normal Y STIs/STDs N HPV Vaccine N Current Control Method None Are cycles usually normal Y Sexually Active? Y Menses Monthly Y Date of Last Pap Smear Sexual Problems? N Desired Control Method BCPs LMP Unknown Obstetrics History GPAL:G 1 P 1 0 0 1 Type Value Full Term 1 Living 1 Total 1 Past Encounters Encounter ID Performer Location Encounter Start Date Encounter Closed Date Diagnosis/Indication Diagnosis SNOMED-CT Code Diagnosis ICD10 Code Diagnosis Note [id number] Chayito [facility] [address] [address] 08/28/2019 13:35:26 08/28/2019 14:24:13 Abnormal uterine bleeding 9329772531 9100 N93.9 Based on subjective /objective findings today we agreed on further evaluation with updated TVUS & lab work. Will continue OCP for now. Time spent in visit is a total of 15 mins with at least 50% of visit consisting of counseling and review of plan of care. [id number] Amanda Puri [place] [address] [address] 08/31/2019 14:19:38 08/31/2019 16:53:04 Abnormal uterine bleeding 2649431232 9100 N93.9 [id number] Chayito Charles [facility] [address],[place] [address] 08/31/2019 14:20:11 08/31/2019 16:51:49 Abnormal uterine bleeding 1483470220 9100 E55.9 Patient is here today to f/u TVUS for irregular menses. Having menses q2wks despite good compliance with OCP. Her TVUS is wnl We reviewed her lab work which reveals Low Vitamin D 22.2; all other values wnl Her status has not changed since syl last week. No other new sx's voiced today. We discussed the following recommenda tions: 1. Low Vitamin D Rx sent vitamin D 50,000 units weekly x 3mos Will r/p lab work at 3mos f/u Counseled on medication R/B's, Most common side effects, & use. All questions were answered to patient satisfacti on. 2. AUB TVUS is wnl We discussed switching dosage of control & F/U x 3mos in hopes of resolving q2wk menses. She agrees with this trial. Counseled on medication R/B's, Most common side effects, & use. All questions were answered to patient satisfacti on. Trial of Time spent in visit is a total of 16 mins with at least 50% of visit consisting of counseling and review of plan of care. Vitamin D deficiency 347 26702 E55.9 [id number] Sherri Shields CNM [place] [address],[place] [address] 11/17/2019 09:16:11 11/17/2019 10:00:06 Breast infection 242740120 N61.0 [id number] Sherri Shields CNM [place] [address],[place] [address] 12/01/2019 11:52:52 12/01/2019 12:14:01 Mastodynia of left breast 0841874199 2197846 N64.4 mammogram/ ultrasound ordered [id number] Chayito Charles [facility] [address] [address] 03/07/2020 14:32:57 03/11/2020 16:33:24 Abnormal uterine bleeding 9243353326 9100 N93.9 After discussing patient issues, we agreed to keep menstrual diary. If random spotting continues to happen over the next two months will return to office and discuss medication change. Likely this incident of AUB this month is from missing a pill earlier in the month which can throw off the cycle. UPT was neg. She agrees to plan & denies any further questions. Has otherwise really liked her OCP that she is currently on. Time spent in visit is a total of 15 mins with at least 50% of visit consisting of counseling and review of plan of care. test negative 725407383 Z32.02 [id number] Rita Londono [place] [address] [address] 06/09/2021 10:04:55 06/09/2021 19:37:15 Contraception care management 020949970 Z30.9 Discussed options and pt would like to start Levora. She is aware it may or may not help. Plan to return in 3 months for wwe and med check. She is aware of the risks and benefits. She does not have any medical condition that is contraindi cated with the use of estrogen containing control. Pt will start her pills on the first wednesday following the start of her period. She is aware it is not effective for control the first month. She is also aware of the importance of taking at the same time every day. Encouraged use of condoms as the pill does not protect against STD's. Will return in 3 months for med check. Consent was read and signed. Pt verbalized understand ing. Health Concerns Section Related Observation LastModified by Organization Detai ls LastModified Time None Recorded Concern Status LastModified by Organization Details LastModified Time None Recorded Advance Directives Directive None Recorded Payers Encounter Date Sequence Insurance Name Policy Number Policy Lizarraga Covered Member ID Lizarraga Member ID Guarantor Name 08/31/2019 1 [facility] [employer] [id number] Reji Jasso [id number] [place]asso 08/31/2019 2 [place] [facility] Mariposa Jasso [id number] Mar[place]osa Jasso 11/17/2019 1 [facility] [id number] Reji Jasso [id number] [place] Jasso 11/17/2019 2 [place] [facility] Mariposa Jasso [id number] Mar[place]osa Jasso 12/01/2019 1 [facility] [id number] Reji Jasso [id number] [place] Jasso 12/01/2019 2 [place] [facility] Mariposa Jasso [id number] Mariposa Jasso 03/07/2020 1 [facility] [id number] Reji Jasso [id number] [place] Jasso 03/07/2020 2 [place] [facility] Mariposa Jasso [id number] Mariposa Jasso 06/09/2021 1 [facility] [id number] Reji Jasso [id number] Mar[place] Jasso 06/09/2021 2 [place] [facility] Mariposa Jasso [id number] Mariposa Jasso Notes Date Note Type Note Provider Name and Address Organization Details Recorded Time 08/31/2019 text/html Abnormal BleedingReported bypatient.Notes:Roberto montenegro is here today to f/u TVUS for irregular menses. Having menses q2wks despite good compliance with OCP. Her TVUS is wnl We reviewed her lab work which reveals Low Vitamin D 22.2; all other values wnl Her status has not changed since syl last week. No other new sx's voiced today. Chayito Charles, [facility]- [address], [place], [address], [facility] 08/31/2019 15:25:38 11/17/2019 text/html last couple days pain and redness in her left breast, no mass not Sherri Shields CNM [address], [place], [address], [facility] 11/17/2019 09:54:55 12/01/2019 text/html redness and most pain resolved, no mass but still sore on occasion, finished antibiotics Sherri Shields CNM [address], [place], [address], [facility] 12/01/2019 12:12:54 03/07/2020 text/html Beer - Abnormal BleedingReported bypatient.Notes:Roberto montenegro is a 24yo white female here today with concerns of AUB with current OCP. Has had random spotting over the last 2.5wks. Has taken UPT but neg. She admits to missing a day of her OCP but caught up the next day. Neg pain/pelvic pain Neg urinary sx's Neg vag d/c, odor, itching Otherwise happy on current OCP and has had good results up until now. Chayito Charles, [facility]- [address], [place], [address], [place] [facility] 03/09/2020 09:23:35 06/09/2021 text/html Initially here f or wwe but does not want her pap while on her cycle. Would like to discuss contraception. Stopped ocp d/t low libido. Would like to restart. Rita cruz, [facility] 06/09/2021 18:29:38 OBGyn Episode Ob Episode Information Episode Created Date Number of Fetuses Patient Bloodtype Patient rh Status Prepregnancy Weight lbs Domestic Partner Domestic Partner Phone Father Name Dental Officer Status 08/28/19 20 1 CLOSED Fetus Data First Name Last Name Admitted to NICU Weight (g) Sex Living Outcome Pediatric Complications Fetus ID Race Codes Race Delivery Type 3259.96 5704 M Full Term 639 Vaginal Delivery Ernesto Calculation Initial Ernesto Date Initial Exam Date Initial Exam Provider Initial Ultrasound Date Last Menstrual Period Date Ultra Sound Weeks Gestation 0 Eighteen To Twenty Week Ernesto Update Ultra Sound Date Fundal Height At Umbil Quickening Date Ultra Sound Latest Weeks Gestation Final Ernesto Confirmed By Final Ernesto Confirmed Date Final Ernesto Date Ultra Sound Latest Days Gestation 0 0 Menstrual History Last Menstrual Date Menses Monthly On Bcp Conception Prior Menses Frequency Hcg Plus Date Menarche Onset Age Delivery Information Delivery Date Delivery Type Labor Anesthesia Weeks Gestation Incision Type Labor Labor Length Hrs Delivered By Post Complications Tubal Sterilization Discharge Date Comments 9 39.3 Discharge Information Feeding Method Contraceptive Method Maternal HG B and HCT Levels
== END 2024-07-28 11:37 | disposition home or self-care (01) ==
PROVIDERS: Emergency Provider Nurse Practitioner Family; PCP Nurse Practitioner Family
DX: A08.4 Viral intestinal infection, unspecified (principal); Z87.891 Personal history of nicotine dependence
CPT/HCPCS: 99213; G0463